=== PATIENT | female | born 1975 | race Caucasian/White ===

== ENCOUNTER 2016-12-18 10:57 | Emergency (ER) | payer MEDICAID ==
[2016-12-18 11:40] LABS: Basophils % (Auto) 1.6 % (0.0-1.8); Eosinophils % (Auto) 0.6 % (0.0-4.3); Hematocrit 36.5 % (30.3-42.9); Hemoglobin 11.6 gm/dl (10.1-14.3); Mean Corpuscular HGB Conc 32 % (30-34); Mean Corpuscular Volume 79 fl (79-97); Platelet Count 322 K/mm3 (140-440); Red Cell Distribution Width 16.3 % (13.2-15.2); White Blood Count 9.5 K/mm3 (4.5-11.0)
[2016-12-18 11:41] LABS: Mean Corpuscular Hemoglobin 25 pg (28-32)
[2016-12-18 12:00] LABS: Anion Gap 15 mmol/L; BUN/Creatinine Ratio 17.14; Blood Urea Nitrogen 12 mg/dL (7-17); Calcium 9.2 mg/dL (8.4-10.2); Carbon Dioxide 29 mmol/L (22-30); Chloride 95.1 mmol/L (98-107); Glucose 329 mg/dL (65-100); Potassium 4.1 mmol/L (3.6-5.0); Sodium 135 mmol/L (137-145)
[2016-12-18 12:07] LABS: Bilirubin,Urine NEG (Negative); Blood,Urine SM (Negative); Ketones,Urine TR mg/dL (Negative); Leukocyte Esterase,Urine MOD (Negative); Mucus,Urine 1+ /HPF; Nitrite,Urine POS (Negative); Urobilinogen,Urine < 2.0 mg/dL (<2.0)
[2016-12-18] MEDS ORDERED: NACL 0.9% 1000 ML 1,000 ML IV ONE (12:28)
[2016-12-18] MEDS ORDERED: ZOFRAN IV ONE (12:28)
[2016-12-18] MEDS ORDERED: ROCEPHIN/NS 1 GM/50 ML 1 GM/50 ML BAG IV ONE (12:29)
--- NOTE | 2016-12-18 12:43 | Emergency Department Report ---
ED N/V/D HPI - General Chief complaint: Chest Pain Stated complaint: CHEST TIGHT/VOMITING Time Seen by Provider: 12/18/16 11:59 Source: patient Mode of arrival: Ambulatory Limitations: No Limitations - History of Present Illness Initial comments: 41-year-old female here with complaint of nausea and vomiting for 6 days. Patient is a type II diabetic and has been without her meds for several days. She states her blood sugar has been high she has not been taking her insulin. She otherwise just generally feels weak. No fevers or chills. - Related Data Previous Rx's Medication Instructions Recorded Last Taken Type Cefpodoxime Proxetil 200 mg PO Q12H #18 tablet 12/18/16 Unknown Rx Ibuprofen [Motrin] 600 mg PO Q8H PRN #30 tablet 12/18/16 Unknown Rx Ondansetron [Zofran Odt] 4 mg PO Q6HR PRN #8 tab.rapdis 12/18/16 Unknown Rx Allergies Allergy/AdvReac Type Severity Reaction Status Date / Time No Known Allergies Allergy Unverified 12/18/16 11:06 ED Review of Systems ROS: Stated complaint: CHEST TIGHT/VOMITING Other details as noted in HPI Comment: All other systems reviewed and negative Constitutional: denies: chills, fever Eyes: denies: eye pain, eye discharge, vision change ENT: denies: ear pain, throat pain Respiratory: denies: cough, shortness of breath, wheezing Cardiovascular: denies: chest pain, palpitations Endocrine: no symptoms reported Gastrointestinal: denies: abdominal pain, nausea, diarrhea Genitourinary: denies: urgency, dysuria, discharge Musculoskeletal: denies: back pain, joint swelling, arthralgia Skin: denies: rash, lesions Neurological: denies: headache, weakness, paresthesias Psychiatric: denies: anxiety, depression Hematological/Lymphatic: denies: easy bleeding, easy bruising ED Past Medical Hx - Past Medical History Previous Medical History?: Yes Hx Diabetes: Yes - Surgical History Past Surgical History?: No - Social History Smoking Status: Current Every Day Smoker Substance Use Type: None - Medications Home Medications: Home Medications Medication Instructions Recorded Confirmed Last Taken Type Cefpodoxime Proxetil 200 mg PO Q12H #18 tablet 12/18/16 Unknown Rx Ibuprofen [Motrin] 600 mg PO Q8H PRN #30 tablet 12/18/16 Unknown Rx Ondansetron [Zofran Odt] 4 mg PO Q6HR PRN #8 tab.rapdis 12/18/16 Unknown Rx ED Physical Exam - General Limitations: No Limitations General appearance: alert, in no apparent distress - Head Head exam: Present: atraumatic, normocephalic - Eye Eye exam: Present: normal appearance - ENT ENT exam: Present: mucous membranes moist - Neck Neck exam: Present: normal inspection - Respiratory Respiratory exam: Present: normal lung sounds bilaterally. Absent: respiratory distress - Cardiovascular Cardiovascular Exam: Present: regular rate, normal rhythm. Absent: systolic murmur, diastolic murmur, rubs, gallop - GI/Abdominal GI/Abdominal exam: Present: soft, normal bowel sounds - Extremities Exam Extremities exam: Present: normal inspection - Back Exam Back exam: Present: normal inspection - Neurological Exam Neurological exam: Present: alert, oriented X3 - Psychiatric Psychiatric exam: Present: normal affect, normal mood - Skin Skin exam: Present: warm, dry, intact, normal color. Absent: rash ED Course Vital Signs 12/18/16 12/18/16 12/18/16 11:06 12:08 12:15 Temperature 98.5 F Pulse Rate 95 H 93 H 95 H Respiratory 18 19 9 L Rate Blood Pressure 133/89 124/82 Blood Pressure [Left] O2 Sat by Pulse 100 94 Oximetry 12/18/16 12/18/16 12/18/16 12:20 12:30 12:45 Temperature 99.0 F Pulse Rate 94 H 101 H 90 Respiratory 29 H 15 22 Rate Blood Pressure 132/80 126/83 Blood Pressure 128/83 [Left] O2 Sat by Pulse 98 96 Oximetry 12/18/16 12/18/16 12/18/16 13:00 13:15 13:30 Temperature Pulse Rate 90 84 84 Respiratory 23 26 H 26 H Rate Blood Pressure 135/84 121/80 122/81 Blood Pressure [Left] O2 Sat by Pulse 100 100 100 Oximetry 12/18/16 12/18/16 12/18/16 13:45 14:00 14:15 Temperature Pulse Rate 90 83 93 H Respiratory 20 22 17 Rate Blood Pressure 129/77 135/84 126/83 Blood Pressure [Left] O2 Sat by Pulse 100 96 Oximetry 09/01/17 09/01/17 09/01/17 14:30 14:45 15:00 Temperature Pulse Rate 81 84 79 Respiratory 21 24 21 Rate Blood Pressure 137/81 139/75 134/79 Blood Pressure [Left] O2 Sat by Pulse 100 99 Oximetry 12/18/16 12/18/16 12/18/16 15:15 15:30 15:45 Temperature Pulse Rate 81 84 84 Respiratory 18 24 25 H Rate Blood Pressure 125/81 136/88 128/85 Blood Pressure [Left] O2 Sat by Pulse 100 100 100 Oximetry ED Medical Decision Making - Lab Data Result diagrams: 12/18/16 11:22 12/18/16 11:22 Laboratory Results - last 24 hr 12/18/16 12/18/16 12/18/16 11:15 11:22 11:22 WBC 9.5 RBC 4.60 Hgb 11.6 Hct 36.5 MCV 79 MCH 25 L MCHC 32 RDW 16.3 H Plt Count 322 Lymph % (Auto) 37.4 H [place] % (Auto) 5.7 Eos % (Auto) 0.6 Baso % (Auto) 1.6 Lymph # 3.6 [place] # 0.5 Eos # 0.1 Baso # 0.1 Seg Neutrophils % 54.7 Seg Neutrophils # 5.2 VBG pH Sodium Potassium Chloride Carbon Dioxide Anion Gap BUN Creatinine Estimated GFR BUN/Creatinine Ratio Glucose POC Glucose 348 H Calcium Troponin T HCG, Qual Negative Urine Color Urine Turbidity Urine pH Ur Specific [place] Urine Protein Urine Glucose (UA) Urine Ketones Urine Blood Urine Nitrite Urine Bilirubin Urine Urobilinogen Ur Leukocyte Esterase Urine WBC (Auto) Urine RBC (Auto) U Epithel Cells (Auto) Urine Mucus 12/18/16 12/18/16 12/18/16 11:22 11:22 12:26 WBC RBC Hgb Hct MCV MCH MCHC RDW Plt Count Lymph % (Auto) [place] % (Auto) Eos % (Auto) Baso % (Auto) Lymph # [place] # Eos # Baso # Seg Neutrophils % Seg Neutrophils # VBG pH 7.394 Sodium 135 L Potassium 4.1 Chloride 95.1 L Carbon Dioxide 29 Anion Gap 15 BUN 12 Creatinine 0.7 Estimated GFR > 60 BUN/Creatinine Ratio 17.14 Glucose 329 H POC Glucose 337 H Calcium 9.2 Troponin T < 0.010 HCG, Qual Urine Color Urine Turbidity Urine pH Ur Specific [place] Urine Protein Urine Glucose (UA) Urine Ketones Urine Blood Urine Nitrite Urine Bilirubin Urine Urobilinogen Ur Leukocyte Esterase Urine WBC (Auto) Urine RBC (Auto) U Epithel Cells (Auto) Urine Mucus 12/18/16 12/18/16 13:57 Unknown WBC RBC Hgb Hct MCV MCH MCHC RDW Plt Count Lymph % (Auto) [place] % (Auto) Eos % (Auto) Baso % (Auto) Lymph # [place] # Eos # Baso # Seg Neutrophils % Seg Neutrophils # VBG pH Sodium Potassium Chloride Carbon Dioxide Anion Gap BUN Creatinine Estimated GFR BUN/Creatinine Ratio Glucose POC Glucose Calcium Troponin T < 0.010 HCG, Qual Urine Color Yellow Urine Turbidity Slightly-cloudy Urine pH 6.0 Ur Specific [place] 1.032 H Urine Protein 30 mg/dl Urine Glucose (UA) >=500 Urine Ketones Tr Urine Blood Sm Urine Nitrite Pos Urine Bilirubin Neg Urine Urobilinogen < 2.0 Ur Leukocyte Esterase Mod Urine WBC (Auto) 61.0 H Urine RBC (Auto) 20.0 U Epithel Cells (Auto) 1.0 Urine Mucus 1+ - Medical Decision Making 41-year-old female presents to emergency Department with complaints of nausea and back pain. Denies any dysuria but has had low-grade subjective fevers at home. Significantly positive UA with multiple white blood cells. Suspicious the patient has pyelonephritis. Plan to treat with IV ceftriaxone. Patient is tolerating oral after treatment with ceftriaxone. Plan to discharge home with oral antibiotics and antiemetics and pain medication. Discussed plan with family and patient and they're comfortable with plan. Portions of this chart were dictated with dictation software. There may be dictation errors contained within this note. Critical care attestation.: If time is entered above; I have spent that time in minutes in the direct care of this critically ill patient, excluding procedure time. ED Disposition Clinical Impression: Pyelonephritis Disposition: DC-01 TO HOME OR SELFCARE Is pt being admited?: No Condition: Stable Instructions: Acute Pyelonephritis (ED) Prescriptions: Cefpodoxime Proxetil 200 mg PO Q12H #18 tablet Ibuprofen [Motrin] 600 mg PO Q8H PRN #30 tablet PRN Reason: Pain Ondansetron [Zofran Odt] 4 mg PO Q6HR PRN #8 tab.rapdis PRN Reason: Nausea Referrals: Kalie RECINOS [Other] - 3-5 Days
[2016-12-18 17:55] VITALS: BP 126/84
== END 2016-12-18 17:55 | disposition home or self-care (01) ==
LOC: ED 10:57
DX: N12 Tubulo-interstitial nephritis, not specified as acute or chronic (principal); E11.9 Type 2 diabetes mellitus without complications; F17.200 Nicotine dependence, unspecified, uncomplicated
CPT/HCPCS: 36415; 80048; 81001; 82805; 82962; 84484; 84703; 85025; 93005; 93010; 96365; 96375; 99284; J0696; J2405; J7030

== ENCOUNTER 2017-07-14 22:17 | Emergency (ER) | payer MEDICAID ==
[2017-07-14 23:41] LABS: Basophils # (Auto) 0.2 K/mm3 (0.0-0.1); Basophils % (Auto) 1.2 % (0.0-1.8); Hematocrit 40.1 % (30.3-42.9); Hemoglobin 13.2 gm/dl (10.1-14.3); Lymphocytes # (Auto) 2.1 K/mm3 (1.2-5.4); Lymphocytes % (Auto) 14.9 % (13.4-35.0); Mean Corpuscular HGB Conc 33 % (30-34); Mean Corpuscular Hemoglobin 27 pg (28-32); Mean Corpuscular Volume 81 fl (79-97); Platelet Count 350 K/mm3 (140-440); Red Blood Count 4.94 M/mm3 (3.65-5.03); Red Cell Distribution Width 15.2 % (13.2-15.2)
[2017-07-14 23:57] LABS: Alanine Aminotransferase 8 units/L (7-56); Albumin 4.2 g/dL (3.9-5); BUN/Creatinine Ratio 23; Blood Urea Nitrogen 16 mg/dL (7-17); Calcium 9.4 mg/dL (8.4-10.2); Hemolysis Index 3; Lipase 20 units/L (13-60)
[2017-07-15 01:12] LABS: Bacteria,Urine 3+ /HPF (Negative); Bilirubin,Urine NEG (Negative); Blood,Urine LG (Negative); Color,Urine Yellow (Yellow); Mucus,Urine 3+ /HPF; Urobilinogen,Urine < 2.0 mg/dL (<2.0)
[2017-07-15 01:13] LABS: RBC,Urine > 182.0 /HPF (0.0-6.0)
[2017-07-15] MEDS ORDERED: MACROBID PO ONE (01:58)
[2017-07-15] MEDS ORDERED: ZOFRAN IV ONE (01:58)
[2017-07-15] MEDS ORDERED: CARAFATE PO ONE (01:58)
[2017-07-15] MEDS ORDERED: NACL 0.9% 1000 ML 2,000 ML IV ONE (01:58)
[2017-07-15] MEDS ORDERED: BENTYL PO ONE (01:58)
[2017-07-15] MEDS ORDERED: PEPCID IV ONE (01:58)
--- NOTE | 2017-07-15 01:59 | Emergency Department Report ---
ED General Adult HPI - General Chief complaint: Abdominal Pain Stated complaint: WEAKNESS/DIZZINESS Time Seen by Provider: 07/15/17 00:27 Source: patient, RN notes reviewed, old records reviewed Mode of arrival: Ambulatory Limitations: No Limitations - History of Present Illness Initial comments: This is a 42-year-old female who was previously unknown to this provider. She can't recall the name of her primary care doctor. She has a history of diabetes. She presents to the ER with a complaint of generalized weakness, vomiting 5-6 times, dysuria, frequency, urinary hesitancy, generalized weakness , inability to tolerate liquid feeds. She reports that after vomiting, she developed central chest pain, which does not radiate to the back, arms and neck. There are no pulmonary embolus or DVT risk factors. The chest pain started at 11:00 in the morning on July 14. Her symptoms started at 8:00 in the morning on July 14. -: Gradual Location: chest Quality: aching Consistency: intermittent Improves with: rest Worsens with: other (chest pain increases with vomiting) Associated Symptoms: chest pain, loss of appetite, malaise, nausea/vomiting, weakness. denies: confusion, cough, diaphoresis, fever/chills, headaches, rash , seizure, shortness of breath, syncope - Related Data Previous Rx's Medication Instructions Recorded Last Taken Type Cefpodoxime Proxetil 200 mg PO Q12H #18 tablet 12/18/16 Unknown Rx Ibuprofen [Motrin] 600 mg PO Q8H PRN #30 tablet 12/18/16 Unknown Rx Ondansetron [Zofran Odt] 4 mg PO Q6HR PRN #8 tab.rapdis 12/18/16 Unknown Rx Acetaminophen [Tylenol Arthritis] 650 mg PO Q6HR PRN #30 tablet.er 07/15/17 Unknown Rx Famotidine [Pepcid] 20 mg PO QDAY #30 tablet 07/15/17 Unknown Rx Nitrofurantoin [place]/M-Cryst 100 mg PO Q12HR #13 capsule 07/15/17 Unknown Rx [Macrobid CAP] Ondansetron [Zofran Odt] 4 mg PO Q8HR PRN #20 tab.rapdis 07/15/17 Unknown Rx Allergies Allergy/AdvReac Type Severity Reaction Status Date / Time No Known Allergies Allergy Unverified 12/18/16 11:06 ED Review of Systems ROS: Stated complaint: WEAKNESS/DIZZINESS Other details as noted in HPI Comment: All other systems reviewed and negative ED Past Medical Hx - Past Medical History Hx Diabetes: Yes - Social History Smoking Status: Current Every Day Smoker Substance Use Type: None - Medications Home Medications: Home Medications Medication Instructions Recorded Confirmed Last Taken Type Cefpodoxime Proxetil 200 mg PO Q12H #18 tablet 12/18/16 Unknown Rx Ibuprofen [Motrin] 600 mg PO Q8H PRN #30 tablet 12/18/16 Unknown Rx Ondansetron [Zofran Odt] 4 mg PO Q6HR PRN #8 tab.rapdis 12/18/16 Unknown Rx Acetaminophen [Tylenol Arthritis] 650 mg PO Q6HR PRN #30 tablet.er 07/15/17 Unknown Rx Famotidine [Pepcid] 20 mg PO QDAY #30 tablet 07/15/17 Unknown Rx Nitrofurantoin [place]/M-Cryst 100 mg PO Q12HR #13 capsule 07/15/17 Unknown Rx [Macrobid CAP] Ondansetron [Zofran Odt] 4 mg PO Q8HR PRN #20 tab.rapdis 07/15/17 Unknown Rx ED Physical Exam - General Limitations: No Limitations General appearance: alert, in no apparent distress - Head Head exam: Present: atraumatic, normocephalic - Eye Eye exam: Present: normal appearance, PERRL, EOMI. Absent: nystagmus - ENT ENT exam: Present: normal exam, normal orophraynx, mucous membranes moist, normal external ear exam - Neck Neck exam: Present: normal inspection, full ROM - Respiratory Respiratory exam: Present: normal lung sounds bilaterally. Absent: respiratory distress - Cardiovascular Cardiovascular Exam: Present: normal rhythm, tachycardia, normal heart sounds. Absent: systolic murmur, diastolic murmur, rubs, gallop - GI/Abdominal GI/Abdominal exam: Present: soft, normal bowel sounds. Absent: distended, tenderness, guarding, rebound, rigid, pulsatile mass - Extremities Exam Extremities exam: Present: normal inspection, full ROM, normal capillary refill. Absent: pedal edema, joint swelling, calf tenderness - Back Exam Back exam: Present: normal inspection, full ROM. Absent: tenderness, CVA tenderness (R), paraspinal tenderness, vertebral tenderness - Neurological Exam Neurological exam: Present: alert, oriented X3, CN II-XII intact, normal gait, other (Extraocular movements intact. Tongue midline. No facial droop. Facial sensation intact to light touch in the V1, V2, V3 distribution bilaterally. 5 and 5 strength in 4 extremities.. Sensation is intact to light touch in 4 extremities.). Absent: motor sensory deficit - Psychiatric Psychiatric exam: Present: normal affect, normal mood - Skin Skin exam: Present: warm, dry, intact, normal color. Absent: rash ED Course Vital Signs 07/14/17 07/15/17 22:23 00:57 Temperature 99.2 F 98.4 F Pulse Rate 98 H 106 H Respiratory 12 18 Rate Blood Pressure 162/107 Blood Pressure 133/90 [Left] O2 Sat by Pulse 98 100 Oximetry ED Medical Decision Making - Lab Data Result diagrams: 07/14/17 23:30 07/14/17 23:30 Vital Signs 07/14/17 07/15/17 07/15/17 22:23 00:57 01:00 Temperature 99.2 F 98.4 F Pulse Rate 98 H 106 H Respiratory 12 18 Rate Blood Pressure 162/107 128/83 Blood Pressure 133/90 [Left] O2 Sat by Pulse 98 100 Oximetry 07/15/17 07/15/17 02:06 03:00 Temperature Pulse Rate Respiratory Rate Blood Pressure 128/83 144/65 Blood Pressure [Left] O2 Sat by Pulse 100 98 Oximetry Lab Results 07/14/17 07/14/17 07/14/17 Range/Units 23:30 23:30 23:33 WBC 14.2 H (4.5-11.0) K/mm3 RBC 4.94 (3.65-5.03) M/mm3 Hgb 13.2 (10.1-14.3) gm/dl Hct 40.1 (30.3-42.9) % MCV 81 (79-97) fl MCH 27 L (28-32) pg MCHC 33 (30-34) % RDW 15.2 (13.2-15.2) % Plt Count 350 (140-440) K/mm3 Lymph % (Auto) 14.9 (13.4-35.0) % [place] % (Auto) 7.0 (0.0-7.3) % Eos % (Auto) 0.0 (0.0-4.3) % Baso % (Auto) 1.2 (0.0-1.8) % Lymph # 2.1 (1.2-5.4) K/mm3 [place] # 1.0 H (0.0-0.8) K/mm3 Eos # 0.0 (0.0-0.4) K/mm3 Baso # 0.2 H (0.0-0.1) K/mm3 Seg Neutrophils % 76.9 H (40.0-70.0) % Seg Neutrophils # 10.9 H (1.8-7.7) K/mm3 PT (12.2-14.9) Sec. INR (0.87-1.13) Sodium 141 (137-145) mmol/L Potassium 3.8 (3.6-5.0) mmol/L Chloride 99.0 (98-107) mmol/L Carbon Dioxide 27 (22-30) mmol/L Anion Gap 19 mmol/L BUN 16 (7-17) mg/dL Creatinine 0.7 (0.7-1.2) mg/dL Estimated GFR > 60 ml/min BUN/Creatinine Ratio 23 % Glucose 329 H (65-100) mg/dL Calcium 9.4 (8.4-10.2) mg/dL Total Bilirubin 0.60 (0.1-1.2) mg/dL AST 9 (5-40) units/L ALT 8 (7-56) units/L Alkaline Phosphatase 79 (35-129) units/L Troponin T (0.00-0.029) ng/mL Total Protein 7.9 (6.3-8.2) g/dL Albumin 4.2 (3.9-5) g/dL Albumin/Globulin Ratio 1.1 % Lipase 20 (13-60) units/L HCG, Qual Negative (Negative) Urine Color (Yellow) Urine Turbidity (Clear) Urine pH (5.0-7.0) Ur Specific [place] (1.003-1.030) Urine Protein (Negative) mg/dL Urine Glucose (UA) (Negative) mg/dL Urine Ketones (Negative) mg/dL Urine Blood (Negative) Urine Nitrite (Negative) Urine Bilirubin (Negative) Urine Urobilinogen (<2.0) mg/dL Ur Leukocyte Esterase (Negative) Urine WBC (Auto) (0.0-6.0) /HPF Urine RBC (Auto) (0.0-6.0) /HPF Urine Bacteria (Auto) (Negative) /HPF Urine Mucus /HPF 07/15/17 07/15/17 07/15/17 Range/Units 00:47 02:12 02:12 WBC (4.5-11.0) K/mm3 RBC (3.65-5.03) M/mm3 Hgb (10.1-14.3) gm/dl Hct (30.3-42.9) % MCV (79-97) fl MCH (28-32) pg MCHC (30-34) % RDW (13.2-15.2) % Plt Count (140-440) K/mm3 Lymph % (Auto) (13.4-35.0) % [place] % (Auto) (0.0-7.3) % Eos % (Auto) (0.0-4.3) % Baso % (Auto) (0.0-1.8) % Lymph # (1.2-5.4) K/mm3 [place] # (0.0-0.8) K/mm3 Eos # (0.0-0.4) K/mm3 Baso # (0.0-0.1) K/mm3 Seg Neutrophils % (40.0-70.0) % Seg Neutrophils # (1.8-7.7) K/mm3 PT 12.4 (12.2-14.9) Sec. INR 0.88 (0.87-1.13) Sodium (137-145) mmol/L Potassium (3.6-5.0) mmol/L Chloride (98-107) mmol/L Carbon Dioxide (22-30) mmol/L Anion Gap mmol/L BUN (7-17) mg/dL Creatinine (0.7-1.2) mg/dL Estimated GFR ml/min BUN/Creatinine Ratio % Glucose (65-100) mg/dL Calcium (8.4-10.2) mg/dL Total Bilirubin (0.1-1.2) mg/dL AST (5-40) units/L ALT (7-56) units/L Alkaline Phosphatase (35-129) units/L Troponin T < 0.010 (0.00-0.029) ng/mL Total Protein (6.3-8.2) g/dL Albumin (3.9-5) g/dL Albumin/Globulin Ratio % Lipase (13-60) units/L HCG, Qual (Negative) Urine Color Yellow (Yellow) Urine Turbidity Clear (Clear) Urine pH 6.0 (5.0-7.0) Ur Specific [place] 1.036 H (1.003-1.030) Urine Protein 100 mg/dl (Negative) mg/dL Urine Glucose (UA) >=500 (Negative) mg/dL Urine Ketones Tr (Negative) mg/dL Urine Blood Lg (Negative) Urine Nitrite Neg (Negative) Urine Bilirubin Neg (Negative) Urine Urobilinogen < 2.0 (<2.0) mg/dL Ur Leukocyte Esterase Tr (Negative) Urine WBC (Auto) 51.0 H (0.0-6.0) /HPF Urine RBC (Auto) > 182.0 (0.0-6.0) /HPF Urine Bacteria (Auto) 3+ (Negative) /HPF Urine Mucus 3+ /HPF - EKG Data When compared to previous EKG there are: previous EKG unavailable 07/15/17 03:22 Normal sinus, 92 bpm, normal intervals, normal axis, not morphologically consistent with ST elevation myocardial infarction. - Radiology Data Radiology results: report reviewed, image reviewed X-ray of the chest, interpreted by myself and radiology: No acute disease - Medical Decision Making Differential diagnosis, including but not limited to: Urinary tract infection, dehydration, gastroparesis esophagitis, GERD, reflux Assessment and plan: 42-year-old female, diabetic with a primary complaint of urinary symptoms with nausea and vomiting. She does not have CVA tenderness. She is nontoxic appearing. Clinically not consistent with upper urinary tract infection. Chest pain is atypical, there are no pulmonary embolus or DVT risk factors she is low risk by well's criteria, troponin negative 1, she is low risk by heart score. Presented more than 8 hours after symptom onset with chest discomfort, therefore as per the [employer] clinical policy, myocardial infarction may be excluded with once the troponin/cardiac enzymes. She felt improved after IV fluids and supportive therapy, was able to tolerate liquid feeds and oral antibiotics. Tachycardia resolved. She will be discharged at this time. Return precautions are reviewed. Critical care attestation.: If time is entered above; I have spent that time in minutes in the direct care of this critically ill patient, excluding procedure time. ED Disposition Clinical Impression: History of nausea and vomiting Disposition: DC-01 TO HOME OR SELFCARE Is pt being admited?: No Does the pt Need Aspirin: No Condition: Stable Additional Instructions: Take medications as needed/directed. Avoid heavy and spicy foods, Motrin, ibuprofen, Naprosyn, Aleve. Return to the ER right away with new pain, worsened pain, migration of pain, fevers, chills, lethargy, irritability, projectile vomiting, change in mental status, confusion, inability to tolerate liquid feeds. Referrals: RAYMON SALGADO MD [Primary Care Provider] - 3-5 Days
--- NOTE | 2017-07-15 02:26 | XRay Report ---
FINAL REPORT EXAM: XR CHEST ROUTINE 2V HISTORY: cp n/v COMPARISON: None available. FINDINGS:: Frontal and lateral views of the chest obtained. Cardiac silhouette is within normal limits. No focal consolidation or effusion. No pneumothorax. Visualized bony thorax is grossly intact. IMPRESSION:: No acute findings.
[2017-07-15 02:40] LABS: INR 0.88 (0.87-1.13)
[2017-07-15 03:20] VITALS: BP 144/65
== END 2017-07-15 03:41 | disposition home or self-care (01) ==
LOC: ED 22:17
DX: R07.89 Other chest pain (principal); R11.2 Nausea with vomiting, unspecified; R53.1 Weakness; E11.9 Type 2 diabetes mellitus without complications; F17.200 Nicotine dependence, unspecified, uncomplicated
CPT/HCPCS: 36415; 71046; 80053; 81001; 83690; 84484; 84703; 85025; 85610; 93005; 93010; 96361; 96374; 96375; 99284; J2405; J7030

== ENCOUNTER 2017-11-08 08:58 | Emergency (ER) | payer MEDICAID ==
[2017-11-08 09:35] LABS: Basophils # (Auto) 0.2 K/mm3 (0.0-0.1); Hemoglobin 13.6 gm/dl (10.1-14.3); Lymphocytes # (Auto) 3.2 K/mm3 (1.2-5.4); Lymphocytes % (Auto) 21.8 % (13.4-35.0); Monocytes # (Auto) 0.9 K/mm3 (0.0-0.8); Monocytes % (Auto) 5.9 % (0.0-7.3)
[2017-11-08 09:41] LABS: Hematocrit 41.5 % (30.3-42.9); Mean Corpuscular HGB Conc 32 % (30-34); Mean Corpuscular Hemoglobin 27 pg (28-32); Mean Corpuscular Volume 83 fl (79-97); Platelet Count 390 K/mm3 (140-440); Red Blood Count 4.99 M/mm3 (3.65-5.03)
[2017-11-08 09:50] LABS: BUN/Creatinine Ratio 35; Blood Urea Nitrogen 21 mg/dL (7-17); Calcium 9.6 mg/dL (8.4-10.2); Hemolysis Index 142
[2017-11-08] MEDS ORDERED: ZOFRAN IV ONE ×2 (10:37→17:06)
[2017-11-08] MEDS ORDERED: NACL 0.9% 1000 ML 1,000 ML IV ONE (10:37)
[2017-11-08] MEDS ORDERED: TYLENOL #3 PO ONE (17:06)
[2017-11-08] MEDS ORDERED: NACL 0.9% 500 ML 500 ML IV ONE (17:06)
[2017-11-08] MEDS ORDERED: HumuLIN R IV ONE (17:06)
[2017-11-08] MEDS ORDERED: TORADOL IV ONE (17:06)
[2017-11-08 18:02] LABS: Alanine Aminotransferase 8 units/L (7-56); Albumin 4.2 g/dL (3.9-5); Bilirubin,Direct < 0.2 mg/dL (0-0.2); Lipase 21 units/L (13-60)
--- NOTE | 2017-11-08 19:21 | Emergency Department Report ---
HPI - General Chief Complaint: Hyperglycemia Time Seen by Provider: 11/08/17 16:48 - HPI HPI: The patient's 42-year-old female with a second history of diabetes mellitus type 2, presents for evaluation of abdominal pain. The patient reports 3 days of generalized abdominal pain, cramping quality, moderate in severity, radiating from the epigastric abdomen and to the lower chest, exacerbated with vomiting. His nares nausea and multiple episodes of his, nonbloody emesis. The patient denies fever, chills, night sweats, diarrhea, blood in the stool, dark tarry stool, dysuria, hematuria, flank pain, genital discharge, inability to pass flatus. ED Past Medical Hx - Past Medical History Hx Diabetes: Yes - Social History Smoking Status: Never Smoker Substance Use Type: None - Medications Home Medications: Home Medications Medication Instructions Recorded Confirmed Last Taken Type Cefpodoxime Proxetil 200 mg PO Q12H #18 tablet 12/18/16 Unknown Rx Ibuprofen [Motrin] 600 mg PO Q8H PRN #30 tablet 12/18/16 Unknown Rx Ondansetron [Zofran Odt] 4 mg PO Q6HR PRN #8 tab.rapdis 12/18/16 Unknown Rx Acetaminophen [Tylenol Arthritis] 650 mg PO Q6HR PRN #30 tablet.er 07/15/17 Unknown Rx Famotidine [Pepcid] 20 mg PO QDAY #30 tablet 07/15/17 Unknown Rx Nitrofurantoin [place]/M-Cryst 100 mg PO Q12HR #13 capsule 07/15/17 Unknown Rx [Macrobid CAP] Ondansetron [Zofran Odt] 4 mg PO Q8HR PRN #20 tab.rapdis 07/15/17 Unknown Rx Famotidine [Pepcid] 20 mg PO BID PRN #30 tablet 10/08/17 Unknown Rx Fluconazole [Diflucan TAB] 150 mg PO ONCE #1 tablet 10/08/17 Unknown Rx Insulin Glargine,Hum.rec.anlog 50 unit SQ QDAY #1 insuln.pen 10/08/17 Unknown Rx [Lantus Solostar] Nitrofurantoin Monohyd/M-Cryst 100 mg PO BID #14 capsule 10/08/17 Unknown Rx [Macrobid 100 mg Capsule] Ondansetron [Zofran Odt] 4 mg PO Q8H PRN #12 tab.rapdis 10/08/17 Unknown Rx metFORMIN [Glucophage] 500 mg PO QDAY #60 tab 10/08/17 Unknown Rx Acetaminophen/Codeine [Tylenol #3] 1 tab PO Q6H PRN #14 tab 11/09/17 Unknown Rx Ciprofloxacin HCl [Ciprofloxacin 500 mg PO Q12H #14 tab 11/09/17 Unknown Rx TAB] Omeprazole Magnesium [PriLOSEC Otc] 20 mg PO QDAY #14 tablet. 11/09/17 Unknown Rx metroNIDAZOLE [Flagyl] 500 mg PO Q12HR #14 tab 11/09/17 Unknown Rx ED Review of Systems ROS: Stated complaint: VOMIT,COLD,CHILLS/NO SWEATS Other details as noted in HPI Constitutional: denies: fever ENT: denies: throat or neck pain Respiratory: denies: cough, shortness of breath Cardiovascular: denies: chest pain Endocrine: denies unexplained weight loss or gain Gastrointestinal: reports: abdominal pain, nausea Genitourinary: denies: dysuria Musculoskeletal: denies: leg swelling Skin: denies: rash Neurological: denies: headache Hematological/Lymphatic: denies: easy bleeding or easy bruising Psych: denies sadness or hopelessness Physical Exam - Physical Exam Vital Signs: Vital Signs 11/08/17 11/08/17 09:14 13:57 Temperature 98.5 F Pulse Rate 112 H 89 Respiratory 16 16 Rate Blood Pressure 169/111 Blood Pressure 173/103 [Right] O2 Sat by Pulse 99 99 Oximetry Physical Exam: General: well-nourished, well-developed, no acute distress Head: Normocephalic, atraumatic Eyes: normal sclera ENT: Mucous membranes are pale and dry Neck: No neck stiffness, no cervical adenopathy Respiratory: Breath sounds equal bilaterally, no wheezing, rales, or rhonchi Cardio: S1 and S2 present, no murmurs, rubs, gallops, capillary refill is delayed Abdomen: Normoactive bowel sounds, soft abdomen, epigastric tenderness to palpation present, soft. Tenderness to palpation present as well, no rigidity, no guarding or rebound tenderness Chest WALL/Back: No tenderness to palpation of the chest wall, no CVA tenderness with percussion Musc: No pitting edema Skin: No rash Neuro: no facial drooping, normal speech Psych: Normal affect ED Course Vital Signs 11/08/17 11/08/17 09:14 13:57 Temperature 98.5 F Pulse Rate 112 H 89 Respiratory 16 16 Rate Blood Pressure 169/111 Blood Pressure 173/103 [Right] O2 Sat by Pulse 99 99 Oximetry ED Medical Decision Making - Lab Data Result diagrams: 11/08/17 09:20 11/08/17 09:20 - Medical Decision Making The patient was seen and examined by myself. The patient is placed on a quality assurance monitor body and continuous pulse ox. On initial evaluation, the patient was found to be in no distress. Evaluation orders are placed. IV access is established and the patient is given 1 L normal saline fluid bolus and Zofran for nausea, and IV analgesic for pain. Lab results revealed elevated urine WBC 13, with positive leukocyte esterase, and elevated glucose of 246, and otherwise labs were non-concerning including WBC, hemoglobin, hematocrit, electrolytes, renal function, LFTs, lipase, and neg preg test. The patient is given IV Ancef for treatment of her hyperglycemia. CT scan of the abdomen and pelvis revealed distal esophageal and gastric changes concerning for acute gastritis/esophagitis. The patient given Cipro and Flagyl for treatment of her UTI and suspected gastritis. She is also given a GI cocktail. The patient was reevaluated and reported that their symptoms were markedly improved. The patient is stable for discharge with outpatient follow-up. The patient is given follow-up and return instructions. The patient expressed understanding and agreed with the plan. The patient is discharged in stable condition. Critical care attestation.: If time is entered above; I have spent that time in minutes in the direct care of this critically ill patient, excluding procedure time. ED Disposition Clinical Impression: Acute lower UTI (urinary tract infection), Abdominal pain, acute, epigastric, Acute suprapubic pain, Dehydration, Acute hyperglycemia Disposition: -01 TO HOME OR SELFCARE Is pt being admited?: No Does the pt Need Aspirin: No Condition: Stable Instructions: Diabetic Hyperglycemia (ED), Dehydration (ED), Urinary Tract Infection in Women (ED), Gastritis (ED), Acute Abdominal Pain (ED) Referrals: [facility] [Outside] - 3-5 Days PRIMARY CARE,MD [Primary Care Provider] - 3-5 Days Time of Disposition: 19:22
[2017-11-08 19:41] LABS: Amorphous Crystals,Urine 2+; Bilirubin,Urine NEG (Negative); Blood,Urine LG (Negative); Mucus,Urine 3+ /HPF; Urobilinogen,Urine < 2.0 mg/dL (<2.0)
[2017-11-08 19:42] LABS: Color,Urine Yellow (Yellow)
[2017-11-08] MEDS ORDERED: TYLENOL #3 ONE (21:54)
--- NOTE | 2017-11-09 01:28 | Cat Scan Report ---
FINAL REPORT EXAM: CT ABDOMEN PELVIS W CON HISTORY: RLQ abd pain, leukocytosis TECHNIQUE: Routine axial imaging was obtained of the abdomen and pelvis following the intravenous injection of 100 cc of Omnipaque 300. Delayed imaging was obtained through the kidneys ureters and bladder. Sagittal and coronal reconstructions were reviewed. Comparison is made to the study of 10/08/2017. FINDINGS: The lung bases are clear. Pleural fluid is not seen. Once again there is thickening of the mucosa in the distal esophagus. There is also prominence of the mucosa in the stomach. Underlying gastritis and distal esophagitis cannot be excluded. The liver, gallbladder, pancreas, spleen, and adrenal glands appear normal. The kidneys enhance normally. There is no evidence of hydronephrosis. The abdominal aorta is normal in caliber. The vascular structures otherwise enhance normally. The bowel loops are normal in caliber and course. The appendix is normal in configuration. There is no evidence of free fluid or adenopathy. There is diffuse enlargement of the uterus suspicious for underlying fibroids. The bladder appears normal. The skeletal structures are well-maintained. IMPRESSION: Normal appendix. Diffuse mucosal thickening of the distal esophagus as well as mucosal prominence of the stomach. Underlying gastritis and distal esophagitis cannot be excluded. Diffuse enlargement of the uterus suspicious for underlying fibroids.
[2017-11-09] MEDS ORDERED: LIDOCAINE VISCOUS 2% PO ONE (01:59)
[2017-11-09] MEDS ORDERED: ALUM-MAG HYDROX-SIMETH 200-200-20MG/5ML PO ONE (01:59)
[2017-11-09] MEDS ORDERED: LEVAQUIN PO ONE (02:02)
[2017-11-09 02:47] VITALS: BP 125/79
== END 2017-11-09 02:46 | disposition home or self-care (01) ==
LOC: ED 08:58
DX: N39.0 Urinary tract infection, site not specified (principal); E86.0 Dehydration; E11.65 Type 2 diabetes mellitus with hyperglycemia
CPT/HCPCS: 36415; 74177; 80048; 80074; 81001; 82805; 82962; 83690; 84703; 85025; 93005; 93010; 96361; 96374; 96375; 96376; 99285; J1885; J2405; J7030; J7040; Q9967; J1815

== ENCOUNTER 2017-12-06 08:51 | Emergency (ER) | payer MEDICAID ==
[2017-12-06 09:35] VITALS: BP 156/99
[2017-12-06] MEDS ORDERED: ZOFRAN ODT PO ONE (10:44)
[2017-12-06] MEDS ORDERED: TORADOL IM ONE (10:44)
[2017-12-06] MEDS ORDERED: NACL 0.9% 1000 ML 1,000 ML IV ONE (10:47)
[2017-12-06] MEDS ORDERED: MORPHINE IV ONE (10:47)
--- NOTE | 2017-12-06 10:50 | Emergency Department Report ---
ED General Adult HPI - General Chief complaint: Nausea/Vomiting/Diarrhea Stated complaint: SOB/CHEST PAIN/STOMACH PAIN Time Seen by Provider: 12/06/17 10:41 Source: patient Mode of arrival: Ambulatory Limitations: No Limitations - History of Present Illness Initial comments: Ms. Campbell has history of insulin-dependent diabetes. She has been vomiting since . She is unable to keep down fluids or solids. She has chest pain back pain., Mild in severity. She denies fever. She denies abdominal pain. She states that she has 6 symptoms when she has her period. Gradual onset of symptoms. - Related Data Previous Rx's Medication Instructions Recorded Last Taken Type Cefpodoxime Proxetil 200 mg PO Q12H #18 tablet 12/18/16 Unknown Rx Ibuprofen [Motrin] 600 mg PO Q8H PRN #30 tablet 12/18/16 Unknown Rx Ondansetron [Zofran Odt] 4 mg PO Q6HR PRN #8 tab.rapdis 12/18/16 Unknown Rx Acetaminophen [Tylenol Arthritis] 650 mg PO Q6HR PRN #30 tablet.er 07/15/17 Unknown Rx Famotidine [Pepcid] 20 mg PO QDAY #30 tablet 07/15/17 Unknown Rx Nitrofurantoin [place]/M-Cryst 100 mg PO Q12HR #13 capsule 07/15/17 Unknown Rx [Macrobid CAP] Ondansetron [Zofran Odt] 4 mg PO Q8HR PRN #20 tab.rapdis 07/15/17 Unknown Rx Famotidine [Pepcid] 20 mg PO BID PRN #30 tablet 10/08/17 Unknown Rx Fluconazole [Diflucan TAB] 150 mg PO ONCE #1 tablet 10/08/17 Unknown Rx Insulin Glargine,Hum.rec.anlog 50 unit SQ QDAY #1 insuln.pen 10/08/17 Unknown Rx [Lantus Solostar] Nitrofurantoin Monohyd/M-Cryst 100 mg PO BID #14 capsule 10/08/17 Unknown Rx [Macrobid 100 mg Capsule] Ondansetron [Zofran Odt] 4 mg PO Q8H PRN #12 tab.rapdis 10/08/17 Unknown Rx metFORMIN [Glucophage] 500 mg PO QDAY #60 tab 10/08/17 Unknown Rx Acetaminophen/Codeine [Tylenol #3] 1 tab PO Q6H PRN #14 tab 11/09/17 Unknown Rx Ciprofloxacin HCl [Ciprofloxacin 500 mg PO Q12H #14 tab 11/09/17 Unknown Rx TAB] Omeprazole Magnesium [PriLOSEC Otc] 20 mg PO QDAY #14 tablet.dr 11/09/17 Unknown Rx metroNIDAZOLE [Flagyl] 500 mg PO Q12HR #14 tab 11/09/17 Unknown Rx Promethazine [Phenergan TAB] 25 mg PO Q6HR PRN #20 tab 12/06/17 Unknown Rx cephALEXin [Keflex] 500 mg PO Q6HR 7 Days #28 capsule 12/06/17 Unknown Rx Allergies Allergy/AdvReac Type Severity Reaction Status Date / Time No Known Allergies Allergy Verified 12/06/17 09:35 ED Review of Systems ROS: Stated complaint: SOB/CHEST PAIN/STOMACH PAIN Other details as noted in HPI Comment: All other systems reviewed and negative Constitutional: malaise ED Past Medical Hx - Past Medical History Previous Medical History?: Yes Hx Diabetes: Yes - Surgical History Past Surgical History?: No - Social History Smoking Status: Never Smoker Substance Use Type: None - Medications Home Medications: Home Medications Medication Instructions Recorded Confirmed Last Taken Type Cefpodoxime Proxetil 200 mg PO Q12H #18 tablet 12/18/16 Unknown Rx Ibuprofen [Motrin] 600 mg PO Q8H PRN #30 tablet 12/18/16 Unknown Rx Ondansetron [Zofran Odt] 4 mg PO Q6HR PRN #8 tab.rapdis 12/18/16 Unknown Rx Acetaminophen [Tylenol Arthritis] 650 mg PO Q6HR PRN #30 tablet.er 07/15/17 Unknown Rx Famotidine [Pepcid] 20 mg PO QDAY #30 tablet 07/15/17 Unknown Rx Nitrofurantoin [place]/M-Cryst 100 mg PO Q12HR #13 capsule 07/15/17 Unknown Rx [Macrobid CAP] Ondansetron [Zofran Odt] 4 mg PO Q8HR PRN #20 tab.rapdis 07/15/17 Unknown Rx Famotidine [Pepcid] 20 mg PO BID PRN #30 tablet 10/08/17 Unknown Rx Fluconazole [Diflucan TAB] 150 mg PO ONCE #1 tablet 10/08/17 Unknown Rx Insulin Glargine,Hum.rec.anlog 50 unit SQ QDAY #1 insuln.pen 10/08/17 Unknown Rx [Lantus Solostar] Nitrofurantoin Monohyd/M-Cryst 100 mg PO BID #14 capsule 10/08/17 Unknown Rx [Macrobid 100 mg Capsule] Ondansetron [Zofran Odt] 4 mg PO Q8H PRN #12 tab.rapdis 10/08/17 Unknown Rx metFORMIN [Glucophage] 500 mg PO QDAY #60 tab 10/08/17 Unknown Rx Acetaminophen/Codeine [Tylenol #3] 1 tab PO Q6H PRN #14 tab 11/09/17 Unknown Rx Ciprofloxacin HCl [Ciprofloxacin 500 mg PO Q12H #14 tab 11/09/17 Unknown Rx TAB] Omeprazole Magnesium [PriLOSEC Otc] 20 mg PO QDAY #14 tablet.dr 11/09/17 Unknown Rx metroNIDAZOLE [Flagyl] 500 mg PO Q12HR #14 tab 11/09/17 Unknown Rx Promethazine [Phenergan TAB] 25 mg PO Q6HR PRN #20 tab 12/06/17 Unknown Rx cephALEXin [Keflex] 500 mg PO Q6HR 7 Days #28 capsule 12/06/17 Unknown Rx ED Physical Exam - General Limitations: No Limitations General appearance: alert, other (appears uncomfortable, constantly spitting into an emesis bag) - Head Head exam: Present: atraumatic, normocephalic - Eye Eye exam: Present: normal appearance - ENT ENT exam: Present: mucous membranes moist - Neck Neck exam: Present: normal inspection. Absent: tenderness, meningismus - Respiratory Respiratory exam: Present: normal lung sounds bilaterally. Absent: respiratory distress, wheezes, rales, rhonchi - Cardiovascular Cardiovascular Exam: Present: regular rate, normal rhythm, normal heart sounds. Absent: systolic murmur, diastolic murmur, rubs, gallop - GI/Abdominal GI/Abdominal exam: Present: soft, normal bowel sounds. Absent: distended, tenderness, guarding, rebound - Extremities Exam Extremities exam: Present: normal inspection - Back Exam Back exam: Present: normal inspection - Neurological Exam Neurological exam: Present: alert, oriented X3 - Psychiatric Psychiatric exam: Present: depressed, flat affect - Skin Skin exam: Present: warm, dry, intact, normal color. Absent: rash ED Course Vital Signs 08/20/18 09:32 Temperature 98.5 F Pulse Rate 99 H Respiratory 16 Rate Blood Pressure 156/99 O2 Sat by Pulse 98 Oximetry ED Medical Decision Making - Lab Data Result diagrams: 12/06/17 11:05 12/06/17 11:05 Laboratory Results - last 24 hr 12/06/17 12/06/17 12/06/17 09:47 11:05 11:05 WBC 8.2 RBC 4.85 Hgb 13.2 Hct 40.3 MCV 83 MCH 27 L MCHC 33 RDW 14.5 Plt Count 317 Lymph % (Auto) 25.7 [place] % (Auto) 5.9 Eos % (Auto) 0.2 Baso % (Auto) 1.4 Lymph # 2.1 [place] # 0.5 Eos # 0.0 Baso # 0.1 Seg Neutrophils % 66.8 Seg Neutrophils # 5.5 Sodium 139 Potassium 4.2 Chloride 99.0 Carbon Dioxide 24 Anion Gap 20 BUN 14 Creatinine 0.5 L Estimated GFR > 60 BUN/Creatinine Ratio 28 Glucose 336 H Calcium 9.7 Urine Color Straw Urine Turbidity Slightly cloudy Urine pH 5.0 Ur Specific [place] 1.015 Urine Protein 100 mg/dl Urine Glucose (UA) 500 Urine Ketones 25 Urine Blood 3+ Urine Nitrite Negative Ur Reducing Substances Not Reportable Urine Bilirubin Negative Urine Ictotest Not Reportable Urine Urobilinogen 0.0 Ur Leukocyte Esterase 25 Urine WBC (Auto) 14.0 H Urine RBC (Auto) 5.0 U Epithel Cells (Auto) 4.0 Urine Bacteria (Auto) 4+ Urine HCG, Qual Negative - Medical Decision Making Ms. Campbell presents with chest back pain and vomiting. Do not suspect ACS. Pain in the chest likely due to vomiting. Without fever or leukocytosis I do not suspect acute pyelonephritis. Prescribed Keflex and promethazine. Critical care attestation.: If time is entered above; I have spent that time in minutes in the direct care of this critically ill patient, excluding procedure time. ED Disposition Clinical Impression: UTI (urinary tract infection), Vomiting Disposition: - TO HOME OR SELFCARE Is pt being admited?: No Does the pt Need Aspirin: No Condition: Stable Instructions: Urinary Tract Infection in Women (ED), Acute Nausea and Vomiting (ED) Prescriptions: cephALEXin [Keflex] 500 mg PO Q6HR 7 Days #28 capsule Promethazine [Phenergan TAB] 25 mg PO Q6HR PRN #20 tab PRN Reason: Nausea Referrals: PRIMARY CARE,MD [Primary Care Provider] - 3-5 Days Forms: Work/School Release Form(ED) Time of Disposition: 12:40
[2017-12-06 11:22] LABS: Basophils # (Auto) 0.1 K/mm3 (0.0-0.1); Basophils % (Auto) 1.4 % (0.0-1.8); Eosinophils % (Auto) 0.2 % (0.0-4.3); Hematocrit 40.3 % (30.3-42.9); Hemoglobin 13.2 gm/dl (10.1-14.3); Lymphocytes # (Auto) 2.1 K/mm3 (1.2-5.4); Lymphocytes % (Auto) 25.7 % (13.4-35.0); Mean Corpuscular HGB Conc 33 % (30-34); Mean Corpuscular Hemoglobin 27 pg (28-32); Mean Corpuscular Volume 83 fl (79-97); Monocytes # (Auto) 0.5 K/mm3 (0.0-0.8); Monocytes % (Auto) 5.9 % (0.0-7.3); Platelet Count 317 K/mm3 (140-440); Red Blood Count 4.85 M/mm3 (3.65-5.03); Red Cell Distribution Width 14.5 % (13.2-15.2)
[2017-12-06 11:36] LABS: BUN/Creatinine Ratio 28; Blood Urea Nitrogen 14 mg/dL (7-17); Calcium 9.7 mg/dL (8.4-10.2); Hemolysis Index 16
[2017-12-06 11:40] LABS: HCG Qualitative,Urine Negative (Negative)
[2017-12-06 12:00] LABS: Bacteria,Urine 4+ /HPF (Negative)
[2017-12-06 12:26] LABS: Bilirubin,Urine Negative (Negative); Color,Urine Straw (Yellow)
[2017-12-06 12:27] LABS: Blood,Urine 3+ (Negative)
[2017-12-06] MEDS ORDERED: KEFLEX PO ONE (12:39)
== END 2017-12-06 12:55 | disposition home or self-care (01) ==
LOC: ED 08:51
DX: N39.0 Urinary tract infection, site not specified (principal); R07.89 Other chest pain; E11.9 Type 2 diabetes mellitus without complications; Z79.4 Long term (current) use of insulin
CPT/HCPCS: 36415; 80048; 81001; 81025; 85025; 93005; 93010; 96361; 96374; 99283; J2270; J7030; Q0162

== ENCOUNTER 2017-12-13 16:36 | Emergency (ER) | payer SELFPAY ==
[2017-12-13 16:50] VITALS: BP 144/92
[2017-12-13 17:23] LABS: Basophils # (Auto) 0.1 K/mm3 (0.0-0.1); Basophils % (Auto) 0.7 % (0.0-1.8); Eosinophils % (Auto) 0.3 % (0.0-4.3); Hematocrit 38.9 % (30.3-42.9); Hemoglobin 12.6 gm/dl (10.1-14.3); Lymphocytes # (Auto) 2.9 K/mm3 (1.2-5.4); Lymphocytes % (Auto) 25.6 % (13.4-35.0); Mean Corpuscular HGB Conc 32 % (30-34); Mean Corpuscular Hemoglobin 27 pg (28-32); Mean Corpuscular Volume 83 fl (79-97); Monocytes # (Auto) 0.7 K/mm3 (0.0-0.8); Monocytes % (Auto) 6.3 % (0.0-7.3); Platelet Count 402 K/mm3 (140-440); Red Cell Distribution Width 14.9 % (13.2-15.2)
[2017-12-13 17:32] LABS: BUN/Creatinine Ratio 17; Blood Urea Nitrogen 10 mg/dL (7-17); Calcium 9.7 mg/dL (8.4-10.2); Hemolysis Index 9
[2017-12-13 18:15] LABS: Bilirubin,Urine NEG (Negative); Blood,Urine NEG (Negative); Color,Urine Yellow (Yellow); Mucus,Urine FEW /HPF; Urobilinogen,Urine < 2.0 mg/dL (<2.0)
== END 2017-12-13 19:19 | disposition left against medical advice (07) ==
LOC: ED 16:36
DX: R11.2 Nausea with vomiting, unspecified (principal); Z53.21 Procedure and treatment not carried out due to patient leaving prior to being seen by health care provider
CPT/HCPCS: 36415; 80048; 81001; 82805; 82962; 84484; 84703; 85025; 93005; 93010

== ENCOUNTER 2017-12-14 07:43 | Emergency (ER) | payer MEDICAID ==
[2017-12-14] MEDS ORDERED: NACL 0.9% 1000 ML 1,000 ML IV ONE ×2 (13:57→17:17)
[2017-12-14] MEDS ORDERED: ZOFRAN IV ONE ×2 (13:58→17:17)
[2017-12-14] MEDS ORDERED: REGLAN IV ONE ×2 (13:58→17:17)
--- NOTE | 2017-12-14 14:04 | Emergency Department Report ---
ED N/V/D HPI - General Chief complaint: Nausea/Vomiting/Diarrhea Stated complaint: BODY ACHE Time Seen by Provider: 12/14/17 13:51 Source: patient, family Mode of arrival: Ambulatory Limitations: No Limitations - History of Present Illness Initial comments: This is a 42-year-old female here report headache, nausea vomiting body pain 2 weeks. She states that she was here last night and had her blood drawn. She says she left around 84 treatment. Patient has a history of diabetes and she is on medication for diabetes. She also has a history of hypertension. She reports that she is having generalized pain 10 out of 10 and achy. Worse with movement better with rest.Patient presents to emergency department with a chief complaint of nausea and vomiting 2 weeks. Per the patient and her during her cycle monthly she has nausea and vomiting but usually resolves within a cycle but this time it did not. Patient was in the ED last night but eloped before being seen. Patient states she I will hold any food or fluids down at home. On physical exam the patient is tachycardic with dry mucous membranes abdomen is soft/nontender/positive bowel sounds/nondistended. MD complaint: nausea, vomiting, diarrhea Onset/Timin -: week(s) Description of Vomiting: food contents Description of Diarrhea: water Associated Abdominal Pain: Yes Location: diffuse Radiation: none Pain Scale: 10 Quality: aching Consistency: intermittent Improves with: none Worsens with: none Context: other (unknown) Associated Symptoms: myalgias, headaches, nausea/vomiting. denies: chest pain, cough, diaphoresis, fever/chills, loss of appetite, malaise, rash, dysuria, shortness of breath, syncope, weakness - Related Data Previous Rx's Medication Instructions Recorded Last Taken Type Cefpodoxime Proxetil 200 mg PO Q12H #18 tablet 12/18/16 Unknown Rx Ibuprofen [Motrin] 600 mg PO Q8H PRN #30 tablet 12/18/16 Unknown Rx Ondansetron [Zofran Odt] 4 mg PO Q6HR PRN #8 tab.rapdis 12/18/16 Unknown Rx Acetaminophen [Tylenol Arthritis] 650 mg PO Q6HR PRN #30 tablet.er 07/15/17 Unknown Rx Famotidine [Pepcid] 20 mg PO QDAY #30 tablet 07/15/17 Unknown Rx Nitrofurantoin Hodgeman/M-Cryst 100 mg PO Q12HR #13 capsule 07/15/17 Unknown Rx [Macrobid CAP] Ondansetron [Zofran Odt] 4 mg PO Q8HR PRN #20 tab.rapdis 07/15/17 Unknown Rx Famotidine [Pepcid] 20 mg PO BID PRN #30 tablet 10/08/17 Unknown Rx Fluconazole [Diflucan TAB] 150 mg PO ONCE #1 tablet 10/08/17 Unknown Rx Insulin Glargine,Hum.rec.anlog 50 unit SQ QDAY #1 insuln.pen 10/08/17 Unknown Rx [Lantus Solostar] Nitrofurantoin Monohyd/M-Cryst 100 mg PO BID #14 capsule 10/08/17 Unknown Rx [Macrobid 100 mg Capsule] Ondansetron [Zofran Odt] 4 mg PO Q8H PRN #12 tab.rapdis 10/08/17 Unknown Rx metFORMIN [Glucophage] 500 mg PO QDAY #60 tab 10/08/17 Unknown Rx Acetaminophen/Codeine [Tylenol #3] 1 tab PO Q6H PRN #14 tab 11/09/17 Unknown Rx Ciprofloxacin HCl [Ciprofloxacin 500 mg PO Q12H #14 tab 11/09/17 Unknown Rx TAB] Omeprazole Magnesium [PriLOSEC Otc] 20 mg PO QDAY #14 tablet.dr 11/09/17 Unknown Rx metroNIDAZOLE [Flagyl] 500 mg PO Q12HR #14 tab 11/09/17 Unknown Rx Promethazine [Phenergan TAB] 25 mg PO Q6HR PRN #20 tab 12/06/17 Unknown Rx cephALEXin [Keflex] 500 mg PO Q6HR 7 Days #28 capsule 12/06/17 Unknown Rx Pantoprazole [Protonix] 40 mg PO QDAY 30 Days #30 tablet 12/14/17 Unknown Rx Promethazine [Phenergan TAB] 25 mg PO Q6HR PRN #16 tab 12/14/17 Unknown Rx cephALEXin [Keflex] 500 mg PO Q8HR 5 Days #15 cap 12/14/17 Unknown Rx traMADol [Ultram 50 MG tab] 50 mg PO Q6HR PRN #20 tablet 12/14/17 Unknown Rx Allergies Allergy/AdvReac Type Severity Reaction Status Date / Time No Known Allergies Allergy Verified 12/14/17 07:46 ED Review of Systems ROS: Stated complaint: BODY ACHE Other details as noted in HPI Constitutional: denies: chills, fever Eyes: denies: eye pain, vision change ENT: denies: ear pain, throat pain, epistaxis, congestion Respiratory: denies: cough, shortness of breath, SOB with exertion, SOB at rest , stridor, wheezing Cardiovascular: denies: chest pain, palpitations, dyspnea on exertion, edema, syncope, paroxysmal nocturnal dyspnea Gastrointestinal: nausea, vomiting. denies: abdominal pain, diarrhea, constipation, hematemesis, melena, hematochezia Genitourinary: denies: urgency, dysuria, frequency, hematuria, discharge, abnormal menses, dyspareunia Musculoskeletal: denies: back pain, joint swelling, arthralgia, myalgia Skin: denies: rash, lesions Neurological: denies: headache, weakness, numbness, paresthesias, confusion, abnormal gait, vertigo ED Past Medical Hx - Past Medical History Previous Medical History?: Yes Hx Diabetes: Yes - Surgical History Past Surgical History?: No - Family History Family history: hypertension - Social History Smoking Status: Never Smoker Substance Use Type: None - Medications Home Medications: Home Medications Medication Instructions Recorded Confirmed Last Taken Type Cefpodoxime Proxetil 200 mg PO Q12H #18 tablet 12/18/16 Unknown Rx Ibuprofen [Motrin] 600 mg PO Q8H PRN #30 tablet 12/18/16 Unknown Rx Ondansetron [Zofran Odt] 4 mg PO Q6HR PRN #8 tab.rapdis 12/18/16 Unknown Rx Acetaminophen [Tylenol Arthritis] 650 mg PO Q6HR PRN #30 tablet.er 07/15/17 Unknown Rx Famotidine [Pepcid] 20 mg PO QDAY #30 tablet 07/15/17 Unknown Rx Nitrofurantoin Hodgeman/M-Cryst 100 mg PO Q12HR #13 capsule 07/15/17 Unknown Rx [Macrobid CAP] Ondansetron [Zofran Odt] 4 mg PO Q8HR PRN #20 tab.rapdis 07/15/17 Unknown Rx Famotidine [Pepcid] 20 mg PO BID PRN #30 tablet 10/08/17 Unknown Rx Fluconazole [Diflucan TAB] 150 mg PO ONCE #1 tablet 10/08/17 Unknown Rx Insulin Glargine,Hum.rec.anlog 50 unit SQ QDAY #1 insuln.pen 10/08/17 Unknown Rx [Lantus Solostar] Nitrofurantoin Monohyd/M-Cryst 100 mg PO BID #14 capsule 10/08/17 Unknown Rx [Macrobid 100 mg Capsule] Ondansetron [Zofran Odt] 4 mg PO Q8H PRN #12 tab.rapdis 10/08/17 Unknown Rx metFORMIN [Glucophage] 500 mg PO QDAY #60 tab 10/08/17 Unknown Rx Acetaminophen/Codeine [Tylenol #3] 1 tab PO Q6H PRN #14 tab 11/09/17 Unknown Rx Ciprofloxacin HCl [Ciprofloxacin 500 mg PO Q12H #14 tab 11/09/17 Unknown Rx TAB] Omeprazole Magnesium [PriLOSEC Otc] 20 mg PO QDAY #14 tablet.dr 11/09/17 Unknown Rx metroNIDAZOLE [Flagyl] 500 mg PO Q12HR #14 tab 11/09/17 Unknown Rx Promethazine [Phenergan TAB] 25 mg PO Q6HR PRN #20 tab 12/06/17 Unknown Rx cephALEXin [Keflex] 500 mg PO Q6HR 7 Days #28 capsule 12/06/17 Unknown Rx Pantoprazole [Protonix] 40 mg PO QDAY 30 Days #30 tablet 12/14/17 Unknown Rx Promethazine [Phenergan TAB] 25 mg PO Q6HR PRN #16 tab 12/14/17 Unknown Rx cephALEXin [Keflex] 500 mg PO Q8HR 5 Days #15 cap 12/14/17 Unknown Rx traMADol [Ultram 50 MG tab] 50 mg PO Q6HR PRN #20 tablet 12/14/17 Unknown Rx ED Physical Exam - General Limitations: No Limitations General appearance: alert, in no apparent distress - Head Head exam: Present: atraumatic, normocephalic, normal inspection - Eye Eye exam: Present: normal appearance, PERRL, EOMI. Absent: conjunctival injection, periorbital swelling, periorbital tenderness Pupils: Present: normal accommodation - ENT ENT exam: Present: normal exam, normal orophraynx, mucous membranes moist, TM's normal bilaterally, normal external ear exam - Neck Neck exam: Present: normal inspection, full ROM, other (no C-spine tenderness). Absent: tenderness, meningismus, lymphadenopathy - Respiratory Respiratory exam: Present: normal lung sounds bilaterally. Absent: respiratory distress, chest wall tenderness - Cardiovascular Cardiovascular Exam: Present: regular rate, normal rhythm, normal heart sounds. Absent: systolic murmur, diastolic murmur - GI/Abdominal GI/Abdominal exam: Present: soft, normal bowel sounds. Absent: distended, tenderness, guarding, rebound, rigid, organomegaly, mass, bruit, pulsatile mass , hernia - Extremities Exam Extremities exam: Present: normal inspection, full ROM, normal capillary refill , other (No cce. + 2 pulses in all extremities, no neurovascular compromise). Absent: tenderness, pedal edema, calf tenderness - Back Exam Back exam: Present: normal inspection, full ROM, other (No cce. + 2 pulses in all extremities, no neurovascular compromise). Absent: tenderness, CVA tenderness (R), CVA tenderness (L), muscle spasm, rash noted - Neurological Exam Neurological exam: Present: alert, oriented X3, normal gait, reflexes normal. Absent: motor sensory deficit - Psychiatric Psychiatric exam: Present: normal affect, normal mood - Skin Skin exam: Present: warm, dry, intact, normal color. Absent: rash ED Course Vital Signs 12/14/17 12/14/17 12/14/17 07:46 17:08 20:00 Temperature 98.8 F 98.6 F Pulse Rate 96 H 122 H 107 H Respiratory 18 20 17 Rate Blood Pressure 135/93 Blood Pressure 126/85 140/91 [Left] O2 Sat by Pulse 98 99 97 Oximetry - Reevaluation(s) Reevaluation #1: 12/14/17 17:15 Patient received morphine in 10 mg IV, normal saline 1 L, morphine 4 mg IV, Zofran 4 mg IV for nausea and pain and she reports she feels a little better. Patient with small urinary tract infection and cultures Reevaluation #2: 12/14/17 18:55 Patient receive additional Reglan 10 mg IV, Zofran 8 mg IV and Protonix 40 mg IV. She received lidocaine 15 mL and Maalox 15 mL by mouth with additional 1 L of normal saline and patient able to ambulate and she says she is feeling a lot better. Venous pH is normal. CBC white count of 17.5, chemistries stable. Urinalysis shows some urinary tract infection, greater than 500 glucose in her urine and 80 of ketones. I will put patient on 3 days of Bactrim to cover small UTI. ED Medical Decision Making - Lab Data Result diagrams: 12/14/17 14:00 12/14/17 14:05 X-ray abdominal series with one chest x-ray shows no acute cardiopulmonary processes seen. Nonspecific, nonobstructive bowel gas pattern with no acute process noted. As dictated by radiologist report reviewed by myself. Patient: MELLISA CEE MR#: [id number] : 1975 Acct:[id number] Age/Sex: 42 / F ADM Date: 12/14/17 Loc: ED Attending Dr: Lab Results 12/14/17 12/14/17 12/14/17 Range/Units 11:33 14:00 14:05 WBC 17.5 H (4.5-11.0) K/mm3 RBC 5.12 H (3.65-5.03) M/mm3 Hgb 13.6 (10.1-14.3) gm/dl Hct 42.2 (30.3-42.9) % MCV 83 (79-97) fl MCH 27 L (28-32) pg MCHC 32 (30-34) % RDW 14.6 (13.2-15.2) % Plt Count 445 H (140-440) K/mm3 Lymph % (Auto) 7.1 L (13.4-35.0) % Hodgeman % (Auto) 2.3 (0.0-7.3) % Eos % (Auto) 0.1 (0.0-4.3) % Baso % (Auto) 0.7 (0.0-1.8) % Lymph # 1.2 (1.2-5.4) K/mm3 Hodgeman # 0.4 (0.0-0.8) K/mm3 Eos # 0.0 (0.0-0.4) K/mm3 Baso # 0.1 (0.0-0.1) K/mm3 Seg Neutrophils % 89.8 H (40.0-70.0) % Seg Neutrophils # 15.7 H (1.8-7.7) K/mm3 PT 12.9 (12.2-14.9) Sec. INR 0.92 (0.87-1.13) APTT 24.1 L (24.2-36.6) Sec. VBG pH (7.320-7.420) Sodium (137-145) mmol/L Potassium (3.6-5.0) mmol/L Chloride (98-107) mmol/L Carbon Dioxide (22-30) mmol/L Anion Gap mmol/L BUN (7-17) mg/dL Creatinine (0.7-1.2) mg/dL Estimated GFR ml/min BUN/Creatinine Ratio % Glucose (65-100) mg/dL POC Glucose 342 H (70-105) Calcium (8.4-10.2) mg/dL Phosphorus (2.5-4.5) mg/dL Magnesium (1.7-2.3) mg/dL Total Bilirubin (0.1-1.2) mg/dL AST (5-40) units/L ALT (7-56) units/L Alkaline Phosphatase (35-129) units/L Total Protein (6.3-8.2) g/dL Albumin (3.9-5) g/dL Albumin/Globulin Ratio % Lipase (13-60) units/L Urine Color (Yellow) Urine Turbidity (Clear) Urine pH (5.0-7.0) Ur Specific [place] (1.003-1.030) Urine Protein (Negative) mg/dL Urine Glucose (UA) (Negative) mg/dL Urine Ketones (Negative) mg/dL Urine Blood (Negative) Urine Nitrite (Negative) Ur Reducing Substances Urine Bilirubin (Negative) Urine Ictotest Urine Urobilinogen (<2.0) mg/dL Ur Leukocyte Esterase (Negative) Urine WBC (Auto) (0.0-6.0) /HPF Urine RBC (Auto) (0.0-6.0) /HPF U Epithel Cells (Auto) (0-13.0) /HPF Urine Mucus /HPF Urine HCG, Qual (Negative) Urine Opiates Screen Urine Methadone Screen Ur Barbiturates Screen Ur Phencyclidine Scrn Ur Amphetamines Screen U Benzodiazepines Scrn Urine Cocaine Screen U Marijuana (THC) Screen Drugs of Abuse Note 12/14/17 12/14/17 12/14/17 Range/Units 14:05 16:31 16:31 WBC (4.5-11.0) K/mm3 RBC (3.65-5.03) M/mm3 Hgb (10.1-14.3) gm/dl Hct (30.3-42.9) % MCV (79-97) fl MCH (28-32) pg MCHC (30-34) % RDW (13.2-15.2) % Plt Count (140-440) K/mm3 Lymph % (Auto) (13.4-35.0) % Hodgeman % (Auto) (0.0-7.3) % Eos % (Auto) (0.0-4.3) % Baso % (Auto) (0.0-1.8) % Lymph # (1.2-5.4) K/mm3 Hodgeman # (0.0-0.8) K/mm3 Eos # (0.0-0.4) K/mm3 Baso # (0.0-0.1) K/mm3 Seg Neutrophils % (40.0-70.0) % Seg Neutrophils # (1.8-7.7) K/mm3 PT (12.2-14.9) Sec. INR (0.87-1.13) APTT (24.2-36.6) Sec. VBG pH (7.320-7.420) Sodium 139 (137-145) mmol/L Potassium 4.0 (3.6-5.0) mmol/L Chloride 92.6 L (98-107) mmol/L Carbon Dioxide 20 L D (22-30) mmol/L Anion Gap 30 mmol/L BUN 14 (7-17) mg/dL Creatinine 0.6 L (0.7-1.2) mg/dL Estimated GFR > 60 ml/min BUN/Creatinine Ratio 23 % Glucose 399 H (65-100) mg/dL POC Glucose (70-105) Calcium 10.2 (8.4-10.2) mg/dL Phosphorus 3.90 (2.5-4.5) mg/dL Magnesium 2.10 (1.7-2.3) mg/dL Total Bilirubin 0.50 (0.1-1.2) mg/dL AST 14 (5-40) units/L ALT 18 (7-56) units/L Alkaline Phosphatase 70 (35-129) units/L Total Protein 8.0 (6.3-8.2) g/dL Albumin 4.5 (3.9-5) g/dL Albumin/Globulin Ratio 1.3 % Lipase 16 (13-60) units/L Urine Color Yellow (Yellow) Urine Turbidity Slightly-cloudy (Clear) Urine pH 6.0 (5.0-7.0) Ur Specific [place] 1.030 (1.003-1.030) Urine Protein 100 mg/dl (Negative) mg/dL Urine Glucose (UA) >=500 (Negative) mg/dL Urine Ketones 80 (Negative) mg/dL Urine Blood Neg (Negative) Urine Nitrite Neg (Negative) Ur Reducing Substances Not Reportable Urine Bilirubin Neg (Negative) Urine Ictotest Not Reportable Urine Urobilinogen < 2.0 (<2.0) mg/dL Ur Leukocyte Esterase Tr (Negative) Urine WBC (Auto) 5.0 (0.0-6.0) /HPF Urine RBC (Auto) 4.0 (0.0-6.0) /HPF U Epithel Cells (Auto) 12.0 (0-13.0) /HPF Urine Mucus 2+ /HPF Urine HCG, Qual Negative (Negative) Urine Opiates Screen Presumptive negative Urine Methadone Screen Presumptive negative Ur Barbiturates Screen Presumptive negative Ur Phencyclidine Scrn Presumptive negative Ur Amphetamines Screen Presumptive negative U Benzodiazepines Scrn Presumptive negative Urine Cocaine Screen Presumptive negative U Marijuana (THC) Screen Presumptive negative Drugs of Abuse Note Disclamer 12/14/17 12/14/17 Range/Units 18:41 18:43 WBC (4.5-11.0) K/mm3 RBC (3.65-5.03) M/mm3 Hgb (10.1-14.3) gm/dl Hct (30.3-42.9) % MCV (79-97) fl MCH (28-32) pg MCHC (30-34) % RDW (13.2-15.2) % Plt Count (140-440) K/mm3 Lymph % (Auto) (13.4-35.0) % Hodgeman % (Auto) (0.0-7.3) % Eos % (Auto) (0.0-4.3) % Baso % (Auto) (0.0-1.8) % Lymph # (1.2-5.4) K/mm3 Hodgeman # (0.0-0.8) K/mm3 Eos # (0.0-0.4) K/mm3 Baso # (0.0-0.1) K/mm3 Seg Neutrophils % (40.0-70.0) % Seg Neutrophils # (1.8-7.7) K/mm3 PT (12.2-14.9) Sec. INR (0.87-1.13) APTT (24.2-36.6) Sec. VBG pH 7.371 (7.320-7.420) Sodium (137-145) mmol/L Potassium (3.6-5.0) mmol/L Chloride (98-107) mmol/L Carbon Dioxide (22-30) mmol/L Anion Gap mmol/L BUN (7-17) mg/dL Creatinine (0.7-1.2) mg/dL Estimated GFR ml/min BUN/Creatinine Ratio % Glucose (65-100) mg/dL POC Glucose 341 H (70-105) Calcium (8.4-10.2) mg/dL Phosphorus (2.5-4.5) mg/dL Magnesium (1.7-2.3) mg/dL Total Bilirubin (0.1-1.2) mg/dL AST (5-40) units/L ALT (7-56) units/L Alkaline Phosphatase (35-129) units/L Total Protein (6.3-8.2) g/dL Albumin (3.9-5) g/dL Albumin/Globulin Ratio % Lipase (13-60) units/L Urine Color (Yellow) Urine Turbidity (Clear) Urine pH (5.0-7.0) Ur Specific [place] (1.003-1.030) Urine Protein (Negative) mg/dL Urine Glucose (UA) (Negative) mg/dL Urine Ketones (Negative) mg/dL Urine Blood (Negative) Urine Nitrite (Negative) Ur Reducing Substances Urine Bilirubin (Negative) Urine Ictotest Urine Urobilinogen (<2.0) mg/dL Ur Leukocyte Esterase (Negative) Urine WBC (Auto) (0.0-6.0) /HPF Urine RBC (Auto) (0.0-6.0) /HPF U Epithel Cells (Auto) (0-13.0) /HPF Urine Mucus /HPF Urine HCG, Qual (Negative) Urine Opiates Screen Urine Methadone Screen Ur Barbiturates Screen Ur Phencyclidine Scrn Ur Amphetamines Screen U Benzodiazepines Scrn Urine Cocaine Screen U Marijuana (THC) Screen Drugs of Abuse Note Urine culture sent - Radiology Data Patient had x-ray series abdominal, chest x-ray 1 view which was dictated by radiologist report reviewed by myself. Please refer to report below. Patient: MELLISA CEE MR#: [id number] : 1975 Acct:[id number] Age/Sex: 42 / F ADM Date: 12/14/17 Loc: ED Attending Dr: Ordering Physician: JENNIFER WHITTEN MD Date of Service: 12/14/17 Procedure(s): XR abd series w cxr 1V Accession Number(s): [id number] cc: JENNIFER WHITTEN MD Fluoro Time In Minutes: FINAL REPORT EXAM: XR ABD SERIES W CXR 1V HISTORY: vomiting upt ordered TECHNIQUE: PA view of the chest and supine and erect views of the abdomen PRIORS: CXR 07/15/2017 FINDINGS: Chest: Lungs are clear. Trachea is midline. Cardiac and mediastinal silhouettes are unremarkable. Bony structures are intact. No change. Abdomen: The bowel gas pattern is nonspecific. No free air is identified. Soft tissues have no evidence for mass shadows or calcifications. The bony structures are intact. IMPRESSION: 1. No acute cardiopulmonary process seen. No change. 2. Nonspecific, nonobstructive bowel gas pattern with no acute process noted. Transcribed By: [facility] Dictated By: NICKIE CLINE MD Electronically Authenticated By: NICKIE CLINE MD Signed Date/Time: 12/14/171553 DD/ 53 TD/TT: 12/14/171553 - Medical Decision Making This is a 42-year-old female here with nausea vomiting and and generalized pain. Patient is a diabetic and she is here to be evaluated. Patient was screened by Dr. Whitten and or displaced. CBC shows that she has white count of 17.5 with mild shift into the left suspect from nausea and vomiting and hyperactive state, urine drug screen negative CMP is stable, venous pH is normal, patient blood glucose elevated initially but after 2 L of normal saline blood glucose is at 344. Patient with 80 ketones in her urine and trace leukocyte Estrace with cloudy urine and will place patient on 3 days of antibiotic and sent culture. Patient vital signs stable she is afebrile. She had abdominal series and chest x-ray 1 view which was dictated by radiologist and report reviewed by myself and no acute findings found. Laboratory and x-ray report communicated with the patient and she voiced understanding. Patient states she is feeling much better, she has no nausea vomiting or pain and she is able to tolerate by mouth ice water without any nausea or vomiting. I discussed with her that she needs to increase her fluid intake and to follow up with her primary care physician in 2 days. I educated her on medication, blood glucose and how to keep a log, diagnosis and treatment plan and she voiced understanding. Discharged home with prescription for Protonix, Keflex, Phenergan and tramadol. Critical care attestation.: If time is entered above; I have spent that time in minutes in the direct care of this critically ill patient, excluding procedure time. ED Disposition Clinical Impression: Acute cystitis without hematuria, Dehydration, moderate, Musculoskeletal pain Nausea & vomiting Qualifiers: Vomiting type: unspecified Vomiting Intractability: non-intractable Qualified Code(s): R11.2 - Nausea with vomiting, unspecified Hyperglycemia due to type 2 diabetes mellitus Qualifiers: Diabetes mellitus fpc insulin use: with intermediate manager use Qualified Code(s): E11.65 - Type 2 diabetes mellitus with hyperglycemia Disposition: DC-01 TO HOME OR SELFCARE Is pt being admited?: No Does the pt Need Aspirin: No Condition: Stable Instructions: Dehydration (ED), Diabetes Mellitus Type 2 in Adults (ED), Acute Nausea and Vomiting (ED), Musculoskeletal Pain (ED), Diabetic Hyperglycemia (ED) Additional Instructions: Please increase your water intake Take Phenergan for nausea but please do not drive or operate heavy machinery while taking this medication as it causes drowsiness Take Protonix for upset stomach You have a small urinary tract infection and will need to Macrobid for 3 days. Take Ultram for pain but please do not drive or operate heavy machinery while taking this medication as a cause drowsiness Please return to the emergency room if his symptoms return. Prescriptions: cephALEXin [Keflex] 500 mg PO Q8HR 5 Days #15 cap Pantoprazole [Protonix] 40 mg PO QDAY 30 Days #30 tablet Promethazine [Phenergan TAB] 25 mg PO Q6HR PRN #16 tab PRN Reason: Nausea traMADol [Ultram 50 MG tab] 50 mg PO Q6HR PRN #20 tablet PRN Reason: Pain Referrals: PRIMARY CARE, [Primary Care Provider] - 12/16/17 [facility] [Outside] - 12/16/17 [facility] [Provider Group] - 12/16/17 Forms: Work/School Release Form(ED)
--- NOTE | 2017-12-14 14:05 | Emergency Department Report ---
Blank Doc - Documentation Documentation: Patient presents to emergency department with a chief complaint of nausea and vomiting 2 weeks. Per the patient and her during her cycle monthly she has nausea and vomiting but usually resolves within a cycle but this time it did not. Patient was in the ED last night but eloped before being seen. Patient states she I will hold any food or fluids down at home. On physical exam the patient is tachycardic with dry mucous membranes abdomen is soft/ nontender/positive bowel sounds/nondistended. Care will be turned over to the mid-level provider with me available for consultation
[2017-12-14 14:18] LABS: Basophils # (Auto) 0.1 K/mm3 (0.0-0.1); Basophils % (Auto) 0.7 % (0.0-1.8); Eosinophils % (Auto) 0.1 % (0.0-4.3); Hematocrit 42.2 % (30.3-42.9); Hemoglobin 13.6 gm/dl (10.1-14.3); Lymphocytes # (Auto) 1.2 K/mm3 (1.2-5.4); Lymphocytes % (Auto) 7.1 % (13.4-35.0); Mean Corpuscular HGB Conc 32 % (30-34); Mean Corpuscular Hemoglobin 27 pg (28-32); Mean Corpuscular Volume 83 fl (79-97); Monocytes # (Auto) 0.4 K/mm3 (0.0-0.8); Monocytes % (Auto) 2.3 % (0.0-7.3); Platelet Count 445 K/mm3 (140-440); Red Blood Count 5.12 M/mm3 (3.65-5.03); Red Cell Distribution Width 14.6 % (13.2-15.2)
[2017-12-14 14:45] LABS: INR 0.92 (0.87-1.13); Partial Thromboplastin Time 24.1 Sec. (24.2-36.6)
[2017-12-14 15:18] LABS: Albumin 4.5 g/dL (3.9-5)
--- NOTE | 2017-12-14 15:56 | XRay Report ---
FINAL REPORT EXAM: XR ABD SERIES W CXR 1V HISTORY: vomiting upt ordered TECHNIQUE: PA view of the chest and supine and erect views of the abdomen PRIORS: CXR 07/15/2017 FINDINGS: Chest: Lungs are clear. Trachea is midline. Cardiac and mediastinal silhouettes are unremarkable. Bony structures are intact. No change. Abdomen: The bowel gas pattern is nonspecific. No free air is identified. Soft tissues have no evidence for mass shadows or calcifications. The bony structures are intact. IMPRESSION: 1. No acute cardiopulmonary process seen. No change. 2. Nonspecific, nonobstructive bowel gas pattern with no acute process noted.
[2017-12-14 16:36] LABS: Alanine Aminotransferase 18 units/L (7-56); BUN/Creatinine Ratio 23; Blood Urea Nitrogen 14 mg/dL (7-17); Calcium 10.2 mg/dL (8.4-10.2); Hemolysis Index 24; Lipase 16 units/L (13-60)
[2017-12-14 17:18] LABS: Amphetamine Screen,Urine PRESUMPTIVE NEGATIVE; Benzodiazepines Screen,Urine PRESUMPTIVE NEGATIVE; Cannabinoid Screen,Urine PRESUMPTIVE NEGATIVE; Cocaine Screen,Urine PRESUMPTIVE NEGATIVE; Methadone Screen,Urine PRESUMPTIVE NEGATIVE; Opiate Screen,Urine PRESUMPTIVE NEGATIVE
[2017-12-14 17:20] LABS: HCG Qualitative,Urine Negative (Negative)
[2017-12-14] MEDS ORDERED: ALUM-MAG HYDROX-SIMETH 200-200-20MG/5ML PO ONE (17:21)
[2017-12-14] MEDS ORDERED: LIDOCAINE VISCOUS 2% PO ONE (17:21)
[2017-12-14] MEDS ORDERED: PROTONIX IV ONE (17:22)
[2017-12-14 17:24] LABS: Bilirubin,Urine NEG (Negative); Blood,Urine NEG (Negative); Color,Urine Yellow (Yellow); Mucus,Urine 2+ /HPF; Urobilinogen,Urine < 2.0 mg/dL (<2.0)
[2017-12-14 21:08] VITALS: BP 140/91
== END 2017-12-14 20:00 | disposition home or self-care (01) ==
LOC: ED 07:43
DX: N30.00 Acute cystitis without hematuria (principal); E86.0 Dehydration; M79.1 Myalgia; E11.65 Type 2 diabetes mellitus with hyperglycemia; Z79.4 Long term (current) use of insulin; Z79.899 Other long term (current) drug therapy
CPT/HCPCS: 36415; 74022; 80053; 80307; 81001; 81025; 82805; 82962; 83690; 83735; 84100; 85025; 85610; 85730; 87086; 96361; 96374; 96375; 96376; 99284; C9113; J2405; J2765; J7030

== ENCOUNTER 2018-09-07 09:58 | Emergency (ER) | payer SELFPAY ==
[2018-09-07 10:44] LABS: Basophils % (Auto) 0.7 % (0.0-1.8); Eosinophils % (Auto) 0.5 % (0.0-4.3); Hematocrit 35.2 % (30.3-42.9); Hemoglobin 11.5 gm/dl (10.1-14.3); Lymphocytes # (Auto) 1.6 K/mm3 (1.2-5.4); Lymphocytes % (Auto) 25.1 % (13.4-35.0); Mean Corpuscular HGB Conc 33 % (30-34); Mean Corpuscular Volume 77 fl (79-97); Monocytes # (Auto) 0.4 K/mm3 (0.0-0.8); Platelet Count 269 K/mm3 (140-440); Red Blood Count 4.56 M/mm3 (3.65-5.03); Red Cell Distribution Width 18.2 % (13.2-15.2)
[2018-09-07 11:26] LABS: BUN/Creatinine Ratio 17; Blood Urea Nitrogen 10 mg/dL (7-17); Hemolysis Index 10
[2018-09-07] MEDS ORDERED: NACL 0.9% 1000 ML 1,000 ML IV ONE (12:29)
--- NOTE | 2018-09-07 12:32 | Emergency Department Report ---
ED Chest Pain HPI - General Chief Complaint: Chest Pain Stated Complaint: CANT BREATHE Time Seen by Provider: 09/07/18 11:55 Source: patient Mode of arrival: Wheelchair Limitations: No Limitations - History of Present Illness Initial Comments: 43-year-old female with a past medical history of diabetes comes in for chest pain on the left side that sharp and constant this started this morning. Patient reports that she has shortness of breath. 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 Patient does have a past medical history of diabetes currently taken a basal guard and a short acting insulin. Patient reports her primary care doctor is at [facility]. Last time she seen the provider was last month. Her last dose of basal insulin was last night. Patient does admit that she does not take her insulin as she should. Patient also reports that she was seen at [facility] on Wednesday at that time she had fluids. Patient admits to nausea no vomiting had vomiting last week. Alcohol use socially and smokes marijuana. MD Complaint: chest pain Onset/Timin -: days(s) Pain Location: left chest Pain Radiation: none Severity: severe Severity scale (0 -10): 10 Quality: sharp Consistency: constant Improves With: nothing Worsens With: nothing re: nausea. denies: vomting Other Symptoms: burping. denies: cough, fever, palpitations Treatments Prior to Arrival: none Aspirin use within the Past 7 Days: (0) No - Related Data Previous Rx's Medication Instructions Recorded Last Taken Type Cefpodoxime Proxetil 200 mg PO Q12H #18 tablet 12/18/16 Unknown Rx Ibuprofen [Motrin] 600 mg PO Q8H PRN #30 tablet 12/18/16 Unknown Rx Ondansetron [Zofran Odt] 4 mg PO Q6HR PRN #8 tab.rapdis 12/18/16 Unknown Rx Acetaminophen [Tylenol Arthritis] 650 mg PO Q6HR PRN #30 tablet.er 07/15/17 Unknown Rx Famotidine [Pepcid] 20 mg PO QDAY #30 tablet 07/15/17 Unknown Rx Nitrofurantoin Walsh/M-Cryst 100 mg PO Q12HR #13 capsule 07/15/17 Unknown Rx [Macrobid CAP] Ondansetron [Zofran Odt] 4 mg PO Q8HR PRN #20 tab.rapdis 07/15/17 Unknown Rx Famotidine [Pepcid] 20 mg PO BID PRN #30 tablet 10/08/17 Unknown Rx Fluconazole [Diflucan TAB] 150 mg PO ONCE #1 tablet 10/08/17 Unknown Rx Insulin Glargine,Hum.rec.anlog 50 unit SQ QDAY #1 insuln.pen 10/08/17 Unknown Rx [Lantus Solostar] Nitrofurantoin Monohyd/M-Cryst 100 mg PO BID #14 capsule 10/08/17 Unknown Rx [Macrobid 100 mg Capsule] Ondansetron [Zofran Odt] 4 mg PO Q8H PRN #12 tab.rapdis 10/08/17 Unknown Rx metFORMIN [Glucophage] 500 mg PO QDAY #60 tab 10/08/17 Unknown Rx Acetaminophen/Codeine [Tylenol #3] 1 tab PO Q6H PRN #14 tab 11/09/17 Unknown Rx Ciprofloxacin HCl [Ciprofloxacin 500 mg PO Q12H #14 tab 11/09/17 Unknown Rx TAB] Omeprazole Magnesium [PriLOSEC Otc] 20 mg PO QDAY #14 tablet. 11/09/17 Unknown Rx metroNIDAZOLE [Flagyl] 500 mg PO Q12HR #14 tab 11/09/17 Unknown Rx Promethazine [Phenergan] 25 mg PO Q6HR PRN #20 tab 12/06/17 Unknown Rx cephALEXin [Keflex] 500 mg PO Q6HR 7 Days #28 capsule 12/06/17 Unknown Rx Pantoprazole [Protonix] 40 mg PO QDAY 30 Days #30 tablet 12/14/17 Unknown Rx Promethazine [Phenergan TAB] 25 mg PO Q6HR PRN #16 tab 12/14/17 Unknown Rx cephALEXin [Keflex] 500 mg PO Q8HR 5 Days #15 cap 12/14/17 Unknown Rx traMADol [Ultram 50 MG tab] 50 mg PO Q6HR PRN #20 tablet 12/14/17 Unknown Rx Allergies Allergy/AdvReac Type Severity Reaction Status Date / Time hydrocodone AdvReac Itching Verified 09/07/18 10:01 Heart Score - HEART Score History: Moderately suspicious EKG: Normal Age: < 45 Risk factors: 1-2 risk factors Troponin: 1-3x normal limit HEART Score: 3 - Critical Actions Critical Actions: 0-3 pts:0.9-1.7%risk of adverse cardiac event.Candidate for discharge ED Review of Systems ROS: Stated complaint: CANT BREATHE Other details as noted in HPI ED Past Medical Hx - Past Medical History Hx Diabetes: Yes - Social History Smoking Status: Never Smoker Substance Use Type: Alcohol, Marijuana - Medications Home Medications: Home Medications Medication Instructions Recorded Confirmed Last Taken Type Cefpodoxime Proxetil 200 mg PO Q12H #18 tablet 12/18/16 Unknown Rx Ibuprofen [Motrin] 600 mg PO Q8H PRN #30 tablet 12/18/16 Unknown Rx Ondansetron [Zofran Odt] 4 mg PO Q6HR PRN #8 tab.rapdis 12/18/16 Unknown Rx Acetaminophen [Tylenol Arthritis] 650 mg PO Q6HR PRN #30 tablet.er 07/15/17 Unknown Rx Famotidine [Pepcid] 20 mg PO QDAY #30 tablet 07/15/17 Unknown Rx Nitrofurantoin Walsh/M-Cryst 100 mg PO Q12HR #13 capsule 07/15/17 Unknown Rx [Macrobid CAP] Ondansetron [Zofran Odt] 4 mg PO Q8HR PRN #20 tab.rapdis 07/15/17 Unknown Rx Famotidine [Pepcid] 20 mg PO BID PRN #30 tablet 10/08/17 Unknown Rx Fluconazole [Diflucan TAB] 150 mg PO ONCE #1 tablet 10/08/17 Unknown Rx Insulin Glargine,Hum.rec.anlog 50 unit SQ QDAY #1 insuln.pen 10/08/17 Unknown Rx [Lantus Solostar] Nitrofurantoin Monohyd/M-Cryst 100 mg PO BID #14 capsule 10/08/17 Unknown Rx [Macrobid 100 mg Capsule] Ondansetron [Zofran Odt] 4 mg PO Q8H PRN #12 tab.rapdis 10/08/17 Unknown Rx metFORMIN [Glucophage] 500 mg PO QDAY #60 tab 10/08/17 Unknown Rx Acetaminophen/Codeine [Tylenol #3] 1 tab PO Q6H PRN #14 tab 11/09/17 Unknown Rx Ciprofloxacin HCl [Ciprofloxacin 500 mg PO Q12H #14 tab 11/09/17 Unknown Rx TAB] Omeprazole Magnesium [PriLOSEC Otc] 20 mg PO QDAY #14 tablet.dr 11/09/17 Unknown Rx metroNIDAZOLE [Flagyl] 500 mg PO Q12HR #14 tab 11/09/17 Unknown Rx Promethazine [Phenergan] 25 mg PO Q6HR PRN #20 tab 12/06/17 Unknown Rx cephALEXin [Keflex] 500 mg PO Q6HR 7 Days #28 capsule 12/06/17 Unknown Rx Pantoprazole [Protonix] 40 mg PO QDAY 30 Days #30 tablet 12/14/17 Unknown Rx Promethazine [Phenergan TAB] 25 mg PO Q6HR PRN #16 tab 12/14/17 Unknown Rx cephALEXin [Keflex] 500 mg PO Q8HR 5 Days #15 cap 12/14/17 Unknown Rx traMADol [Ultram 50 MG tab] 50 mg PO Q6HR PRN #20 tablet 12/14/17 Unknown Rx ED Physical Exam - General Limitations: No Limitations General appearance: alert, in no apparent distress - Head Head exam: Present: atraumatic, normocephalic - Eye Eye exam: Present: normal appearance - ENT ENT exam: Present: mucous membranes moist - Neck Neck exam: Present: normal inspection - Respiratory Respiratory exam: Present: normal lung sounds bilaterally. Absent: respiratory distress - Cardiovascular Cardiovascular Exam: Present: regular rate, normal rhythm. Absent: systolic murmur, diastolic murmur, rubs, gallop - GI/Abdominal GI/Abdominal exam: Present: soft, normal bowel sounds - Extremities Exam Extremities exam: Present: normal inspection - Back Exam Back exam: Present: normal inspection - Neurological Exam Neurological exam: Present: alert, oriented X3 - Psychiatric Psychiatric exam: Present: normal affect, normal mood - Skin Skin exam: Present: warm, dry, intact, normal color. Absent: rash ED Course Vital Signs 09/07/18 09/07/18 09/07/18 10:04 13:05 14:46 Temperature 98.1 F 98.2 F Pulse Rate 99 H 90 Respiratory 20 18 18 Rate Blood Pressure 155/99 Blood Pressure 154/102 [Right] O2 Sat by Pulse 100 100 Oximetry - Reevaluation(s) Reevaluation #1: 09/07/18 15:[address] Tyler he feels patient is safe to go home we'll give patient 7 units of regular insulin and patient education on importance of taking her diabetic medication correct. Patient is to follow-up with her primary care provider at [facility]. DIAMOND score - Diamond Score Age > 65: (0) No Aspirin use within the Past 7 Days: (0) No 3 or more CAD Risk Factors: (0) No 2 or more Angina events in past 24 hrs: (0) No Known CAD with more than 50% Stenosis: (0) No Elevated Cardiac Markers: (0) No ST Deviation Greater than 0.5mm: (0) No DIAMOND Score: 0 ED Medical Decision Making - Lab Data Result diagrams: 09/07/18 10:32 09/07/18 10:32 - Medical Decision Making Spoke to Dr. Fields he feels patient is safe to go home we'll give patient 7 units of regular insulin and patient education on importance of taking her diabetic medication correct. Patient is to follow-up with her primary care provider at [facility]. Critical Care Time: Yes (30) Critical care time in (mins) excluding proc time.: 30 (spoke to Dr. Fields) Critical care attestation.: If time is entered above; I have spent that time in minutes in the direct care of this critically ill patient, excluding procedure time. ED Disposition Clinical Impression: Atypical chest pain Uncontrolled diabetes mellitus Qualifiers: Diabetes mellitus type: type 2 Glycemic state: with hyperglycemia Qualified Code(s): E11.65 - Type 2 diabetes mellitus with hyperglycemia Disposition: DC-01 TO HOME OR SELFCARE Is pt being admited?: No Does the pt Need Aspirin: No Condition: Stable Instructions: Chest Pain (ED), Diabetes Mellitus Type 2 in Adults (ED) Additional Instructions: Please take your long acting insulin which is her basal insulin twice a day as prescribed by your primary care provider. Please take her short acting insulin 3 times a day as prescribed by your primary care provider. It is very important for you check her blood sugars 3-4 times a day while taking insulin. Importantly to take all chronic medications as prescribed by your primary care provider. [facility] follow up with [facility] your primary care clinic in the next 3-5 days. Tylenol and/or Motrin for pain management. [facility]Other[facility] - 3-5 Days Forms: Work/School Release Form(ED)
[2018-09-07] MEDS ORDERED: IBUPROFEN PO ONE ×2 (12:59→13:04)
--- NOTE | 2018-09-07 14:10 | XRay Report ---
PROCEDURE: XR CHEST 1V AP TECHNIQUE: Chest radiograph, AP view. HISTORY: Chest Pain upt COMPARISONS: Chest x-ray July 15, 2017. FINDINGS: Cardiac silhouette is within normal limits. There is no effusion. There is no pneumothorax. There is no consolidation. There are no suspicious osseous lesions. IMPRESSION: * No acute cardiopulmonary findings. This document is electronically signed by Kye Rosas MD., Sep 07 2018 02:08:32 PM ET
[2018-09-07 14:47] VITALS: BP 154/102
[2018-09-07] MEDS ORDERED: HumuLIN R SUB-Q ONE (15:37)
[2018-09-07 15:43] LABS: Color,Urine Yellow (Yellow)
[2018-09-07 15:44] LABS: Bacteria,Urine 2+ /HPF (Negative); Bilirubin,Urine NEG (Negative); Mucus,Urine 2+ /HPF; Protein,Urine <15 mg/dL mg/dL (Negative); Urobilinogen,Urine < 2.0 mg/dL (<2.0)
[2018-09-07 15:45] LABS: Blood,Urine MOD (Negative)
--- NOTE | 2018-09-07 16:28 | Event Note ---
Date: 09/07/18 Patient evaluated for high blood glucose of 451 and chest pain . Patient has been noncompliant with her insulin Patient is on BSI GLAR 30 units twice a day and short acting insulin 7 units before each meal. Patient counseled about compliance Chest pain secondary to reflux Troponin is negative Patient to be discharged Counseled about compliance Discharge diagnoses Uncontrolled diabetes Noncompliance Chest pain secondary to reflux esophagitis
== END 2018-09-07 16:09 | disposition home or self-care (01) ==
LOC: ED 09:58
DX: E11.65 Type 2 diabetes mellitus with hyperglycemia (principal); E07.89 Other specified disorders of thyroid; F12.90 Cannabis use, unspecified, uncomplicated; Z88.6 Allergy status to analgesic agent
CPT/HCPCS: 36415; 71045; 80048; 81001; 82962; 84484; 84703; 85025; 93005; 93010; 96360; 96361; 96372; 99291; J7030; J1815

== ENCOUNTER 2018-10-15 14:00 | Emergency (ER) | payer SELFPAY ==
--- NOTE | 2018-10-15 15:00 | Event Note ---
ED Screening Note Date of service: 10/15/18 Time: 15:00 ED Screening Note: 43 chest pain. This initial assessment/diagnostic orders/clinical plan/treatment(s) is/are subject to change based on patients health status, clinical progression and re- assessment by fellow clinical providers in the ED. Further treatment and workup at subsequent clinical providers discretion. Patient/guardian urged not to elope from the ED as their condition may be serious if not clinically assessed and managed. Initial orders include:
[2018-10-15 15:37] LABS: Basophils # (Auto) 0.2 K/mm3 (0.0-0.1); Basophils % (Auto) 1.6 % (0.0-1.8); Eosinophils # (Auto) 0.1 K/mm3 (0.0-0.4); Eosinophils % (Auto) 0.5 % (0.0-4.3); Hematocrit 36.7 % (30.3-42.9); Hemoglobin 12.1 gm/dl (10.1-14.3); Lymphocytes # (Auto) 3.9 K/mm3 (1.2-5.4); Lymphocytes % (Auto) 33.3 % (13.4-35.0); Mean Corpuscular HGB Conc 33 % (30-34); Mean Corpuscular Volume 79 fl (79-97); Monocytes # (Auto) 0.7 K/mm3 (0.0-0.8); Monocytes % (Auto) 5.6 % (0.0-7.3); Platelet Count 379 K/mm3 (140-440); Red Blood Count 4.67 M/mm3 (3.65-5.03); Red Cell Distribution Width 17.6 % (13.2-15.2)
[2018-10-15 15:54] LABS: Alanine Aminotransferase 14 units/L (7-56); Albumin 4.4 g/dL (3.9-5); BUN/Creatinine Ratio 19; Blood Urea Nitrogen 13 mg/dL (7-17); Calcium 9.2 mg/dL (8.4-10.2); Hemolysis Index 10
--- NOTE | 2018-10-15 16:39 | Emergency Department Report ---
ED Chest Pain HPI - General Chief Complaint: Chest Pain Stated Complaint: CHEST PAIN Time Seen by Provider: 10/15/18 16:35 Source: patient Mode of arrival: Ambulatory Limitations: No Limitations - History of Present Illness Initial Comments: states CP, SOB, pain with breathing x today no other sx states intermittent sx similar past 2-3 mos no calf pain/swelling no hx DVT/PE hx DM only, no prior cardiac eval MD Complaint: chest pain -: Gradual, hour(s) (8) Onset: during rest Pain Location: substernal Pain Radiation: back Severity: moderate Severity scale (0 -10): 5 Quality: sharp Consistency: intermittent (improving) Improves With: nothing Worsens With: inspiration re: denies: nausea, vomting, diaphoresis Other Symptoms: denies: cough, fever Treatments Prior to Arrival: none Aspirin use within the Past 7 Days: (0) No - Related Data On Oral Contraceptives: No Previous Rx's Medication Instructions Recorded Last Taken Type Cefpodoxime Proxetil 200 mg PO Q12H #18 tablet 12/18/16 Unknown Rx Ibuprofen [Motrin] 600 mg PO Q8H PRN #30 tablet 12/18/16 Unknown Rx Ondansetron [Zofran Odt] 4 mg PO Q6HR PRN #8 tab.rapdis 12/18/16 Unknown Rx Acetaminophen [Tylenol Arthritis] 650 mg PO Q6HR PRN #30 tablet.er 07/15/17 Unknown Rx Famotidine [Pepcid] 20 mg PO QDAY #30 tablet 07/15/17 Unknown Rx Nitrofurantoin [place]/M-Cryst 100 mg PO Q12HR #13 capsule 07/15/17 Unknown Rx [Macrobid CAP] Ondansetron [Zofran Odt] 4 mg PO Q8HR PRN #20 tab.rapdis 07/15/17 Unknown Rx Famotidine [Pepcid] 20 mg PO BID PRN #30 tablet 10/08/17 Unknown Rx Fluconazole [Diflucan TAB] 150 mg PO ONCE #1 tablet 10/08/17 Unknown Rx Insulin Glargine,Hum.rec.anlog 50 unit SQ QDAY #1 insuln.pen 10/08/17 Unknown Rx [Lantus Solostar] Nitrofurantoin Monohyd/M-Cryst 100 mg PO BID #14 capsule 10/08/17 Unknown Rx [Macrobid 100 mg Capsule] Ondansetron [Zofran Odt] 4 mg PO Q8H PRN #12 tab.rapdis 10/08/17 Unknown Rx metFORMIN [Glucophage] 500 mg PO QDAY #60 tab 10/08/17 Unknown Rx Acetaminophen/Codeine [Tylenol #3] 1 tab PO Q6H PRN #14 tab 11/09/17 Unknown Rx Ciprofloxacin HCl [Ciprofloxacin 500 mg PO Q12H #14 tab 11/09/17 Unknown Rx TAB] Omeprazole Magnesium [PriLOSEC Otc] 20 mg PO QDAY #14 tablet. 11/09/17 Unknown Rx metroNIDAZOLE [Flagyl] 500 mg PO Q12HR #14 tab 11/09/17 Unknown Rx Promethazine [Phenergan] 25 mg PO Q6HR PRN #20 tab 12/06/17 Unknown Rx cephALEXin [Keflex] 500 mg PO Q6HR 7 Days #28 capsule 12/06/17 Unknown Rx Pantoprazole [Protonix] 40 mg PO QDAY 30 Days #30 tablet 12/14/17 Unknown Rx Promethazine [Phenergan TAB] 25 mg PO Q6HR PRN #16 tab 12/14/17 Unknown Rx cephALEXin [Keflex] 500 mg PO Q8HR 5 Days #15 cap 12/14/17 Unknown Rx traMADol [Ultram 50 MG tab] 50 mg PO Q6HR PRN #20 tablet 12/14/17 Unknown Rx Allergies Allergy/AdvReac Type Severity Reaction Status Date / Time hydrocodone AdvReac Itching Verified 10/15/18 14:10 Heart Score - HEART Score History: Slightly suspicious EKG: Normal Age: < 45 Risk factors: 1-2 risk factors Troponin: < normal limit HEART Score: 1 ED Review of Systems ROS: Stated complaint: CHEST PAIN Other details as noted in HPI Comment: All other systems reviewed and negative Cardiovascular: as per HPI ED Past Medical Hx - Past Medical History Hx Diabetes: Yes - Surgical History Past Surgical History?: No - Social History Smoking Status: Never Smoker Substance Use Type: Alcohol, Marijuana - Medications Home Medications: Home Medications Medication Instructions Recorded Confirmed Last Taken Type Cefpodoxime Proxetil 200 mg PO Q12H #18 tablet 12/18/16 Unknown Rx Ibuprofen [Motrin] 600 mg PO Q8H PRN #30 tablet 12/18/16 Unknown Rx Ondansetron [Zofran Odt] 4 mg PO Q6HR PRN #8 tab.rapdis 12/18/16 Unknown Rx Acetaminophen [Tylenol Arthritis] 650 mg PO Q6HR PRN #30 tablet.er 07/15/17 Unknown Rx Famotidine [Pepcid] 20 mg PO QDAY #30 tablet 07/15/17 Unknown Rx Nitrofurantoin [place]/M-Cryst 100 mg PO Q12HR #13 capsule 07/15/17 Unknown Rx [Macrobid CAP] Ondansetron [Zofran Odt] 4 mg PO Q8HR PRN #20 tab.rapdis 07/15/17 Unknown Rx Famotidine [Pepcid] 20 mg PO BID PRN #30 tablet 10/08/17 Unknown Rx Fluconazole [Diflucan TAB] 150 mg PO ONCE #1 tablet 10/08/17 Unknown Rx Insulin Glargine,Hum.rec.anlog 50 unit SQ QDAY #1 insuln.pen 10/08/17 Unknown Rx [Lantus Solostar] Nitrofurantoin Monohyd/M-Cryst 100 mg PO BID #14 capsule 10/08/17 Unknown Rx [Macrobid 100 mg Capsule] Ondansetron [Zofran Odt] 4 mg PO Q8H PRN #12 tab.rapdis 10/08/17 Unknown Rx metFORMIN [Glucophage] 500 mg PO QDAY #60 tab 10/08/17 Unknown Rx Acetaminophen/Codeine [Tylenol #3] 1 tab PO Q6H PRN #14 tab 11/09/17 Unknown Rx Ciprofloxacin HCl [Ciprofloxacin 500 mg PO Q12H #14 tab 11/09/17 Unknown Rx TAB] Omeprazole Magnesium [PriLOSEC Otc] 20 mg PO QDAY #14 tablet. 11/09/17 Unknown Rx metroNIDAZOLE [Flagyl] 500 mg PO Q12HR #14 tab 11/09/17 Unknown Rx Promethazine [Phenergan] 25 mg PO Q6HR PRN #20 tab 12/06/17 Unknown Rx cephALEXin [Keflex] 500 mg PO Q6HR 7 Days #28 capsule 12/06/17 Unknown Rx Pantoprazole [Protonix] 40 mg PO QDAY 30 Days #30 tablet 12/14/17 Unknown Rx Promethazine [Phenergan TAB] 25 mg PO Q6HR PRN #16 tab 12/14/17 Unknown Rx cephALEXin [Keflex] 500 mg PO Q8HR 5 Days #15 cap 12/14/17 Unknown Rx traMADol [Ultram 50 MG tab] 50 mg PO Q6HR PRN #20 tablet 12/14/17 Unknown Rx ED Physical Exam - General Limitations: No Limitations General appearance: alert, in no apparent distress - Head Head exam: Present: atraumatic, normocephalic - Eye Eye exam: Present: normal appearance - ENT ENT exam: Present: mucous membranes moist - Neck Neck exam: Present: normal inspection - Respiratory Respiratory exam: Present: normal lung sounds bilaterally. Absent: respiratory distress - Cardiovascular Cardiovascular Exam: Present: regular rate, normal rhythm. Absent: systolic murmur, diastolic murmur, rubs, gallop - GI/Abdominal GI/Abdominal exam: Present: soft, normal bowel sounds. Absent: distended, tenderness - Extremities Exam Extremities exam: Present: normal inspection - Back Exam Back exam: Present: normal inspection - Neurological Exam Neurological exam: Present: alert, oriented X3 - Psychiatric Psychiatric exam: Present: normal affect, normal mood - Skin Skin exam: Present: warm, dry, intact, normal color. Absent: rash ED Course Vital Signs 10/15/18 14:25 Temperature 98.2 F Pulse Rate 107 H Respiratory 18 Rate Blood Pressure 142/92 [Left] O2 Sat by Pulse 100 Oximetry - Reevaluation(s) Reevaluation #1: 10/15/18 18:19 d-dimer high, CTA pending trop neg x 2 10/15/18 18:20 dc home if neg CTA w/ PCP f/u DIAMOND score - Diamond Score Age > 65: (0) No Aspirin use within the Past 7 Days: (0) No 3 or more CAD Risk Factors: (0) No 2 or more Angina events in past 24 hrs: (0) No Known CAD with more than 50% Stenosis: (0) No Elevated Cardiac Markers: (0) No ST Deviation Greater than 0.5mm: (0) No DIAMOND Score: 0 ED Medical Decision Making - Lab Data Result diagrams: 10/15/18 15:19 10/15/18 15:19 - EKG Data -: EKG Interpreted by Co EKG shows normal: sinus rhythm, axis, intervals, QRS complexes, ST-T waves Rate: tachycardia - Radiology Data Radiology results: image reviewed interpreted by me: naf - Medical Decision Making chest pain worse with breathing, improving normal exam labs pending, cxr pending - Differential Diagnosis pleurisy, chest wall pain, PE, less likely cardiac, unlikely dissection Critical care attestation.: If time is entered above; I have spent that time in minutes in the direct care of this critically ill patient, excluding procedure time. ED Disposition Clinical Impression: Atypical chest pain Disposition: DC-01 TO HOME OR SELFCARE Is pt being admited?: No Condition: Good Instructions: Pleurisy (ED), Chest Pain (ED) Referrals: MONTSE JIMENEZ MD [Primary Care Provider] - 3-5 Days
--- NOTE | 2018-10-15 17:00 | XRay Report ---
PROCEDURE: XR CHEST ROUTINE 2V TECHNIQUE: PA and lateral chest radiographs were obtained. HISTORY: chest pain COMPARISONS: None. FINDINGS: Heart: Normal size. Mediastinum/Vessels: Normal. Lungs/Pleural space: Clear. Bony thorax: No acute osseous abnormality. IMPRESSION: Negative examination. This document is electronically signed by Pedro Cui MD., October 15 2018 04:58:39 PM ET
--- NOTE | 2018-10-15 19:24 | Cat Scan Report ---
PROCEDURE: CT ANGIO CHEST TECHNIQUE: Computerized tomographic angiography of the chest was performed after the IV injection of iodinated nonionic contrast including image processing. The image data was postprocessed using 2-di mensional multiplanar reformatted (MPR) and 3-dimensional (MIP and/or volume rendered) techniques. Au tomated exposure control, adjustment of mA and/or kV according to patient size, or iterative reconstr uction dose optimization techniques were utilized. CT DOSE LENGTH PRODUCT: 425.6 mGycm HISTORY: CP, elevated d dimer COMPARISONS: None . FINDINGS: Heart and pericardium: Normal. Thoracic aorta: Normal. Pulmonary vasculature: Normal. Lymph nodes: No enlarged thoracic lymph nodes. Lungs: Normal. Pleural space: No effusion, thickening, or pneumothorax. Musculoskeletal structures: No significant abnormality. Upper abdominal structures: No significant abnormality. IMPRESSION: Negative no CT evidence for acute pulmonary embolus. This document is electronically signed by Mckay Fan MD., October 15 2018 07:21:44 PM ET
--- NOTE | 2018-10-15 19:55 | Emergency Department Report ---
Blank Doc - Documentation Documentation: Patient signed out by my colleague COLT Huynh pending CTA chest results. Patient presents with shortness of breath and chest pain. Troponin negative 2. Chest x-ray with no acute process. EKG with sinus tach otherwise normal. Elevated d-dimer, CTA chest was ordered and shows no acute process/no PE. patient diagnosed with atypical chest pain and given information on pleurisy. advised to follow-up with primary doctor next to 2-3 days. Return to emergency room for any new or worsening symptoms.
[2018-10-15 20:09] VITALS: BP 164/101
== END 2018-10-15 20:09 | disposition home or self-care (01) ==
LOC: ED 14:00
DX: R07.89 Other chest pain (principal); E11.9 Type 2 diabetes mellitus without complications; F12.10 Cannabis abuse, uncomplicated; Z79.899 Other long term (current) drug therapy; Z88.6 Allergy status to analgesic agent
CPT/HCPCS: 36415; 71046; 71275; 80053; 84484; 85025; 85379; 93005; 93010; 99284; Q9967